=== PATIENT | female | born 2000 | race Caucasian/White ===

== ENCOUNTER 2019-03-13 19:38 | Emergency (ER) | payer MEDICAID ==
[~2019-03-13] VITALS: Ht 157.5 cm; Wt 47.0 kg
[~2019-03-13 19:38] MED LIST: NO HOME MEDS
[2019-03-13] MEDS ORDERED: ibuprofen tablet 400 MG TABLET PO ONE (20:15)
[2019-03-13] MEDS ORDERED: morphine 4 MG/ML inj SYRINge IV ONE ×2 (20:15→22:25)
[2019-03-13] MEDS ORDERED: normal saline 1000ML IV soln IVB ONE (20:15)
[2019-03-13] MEDS ORDERED: ondansetron/PF 4mg/2ml inj IV ONE ×2 (20:15→22:25)
[2019-03-13 20:22] LABS: BASOPHILS % (AUTO) 0.5 % (0-1); EOSINOPHILS # (AUTO) 0.2 X10'3 (0-0.9); EOSINOPHILS % (AUTO) 2.5 % (0-6); HEMATOCRIT 42.5 % (35.0-45.0); HEMOGLOBIN 14.6 g/dl (12.0-16.0); LYMPHOCYTES # (AUTO) 2.7 X10'3 (1.1-4.8); LYMPHOCYTES % (AUTO) 28.9 % (21-51); MEAN CORPUSCULAR HEMOGLOBIN 31.9 PG (27.0-31.0); MEAN CORPUSCULAR HGB CONC 34.5 g/dL (33.0-36.5); MEAN CORPUSCULAR VOLUME 92.6 FL (78-98); MEAN PLATELET VOLUME 7.4 FL (7.4-10.4); MONOCYTES # (AUTO) 0.8 X10'3 (0-0.9); MONOCYTES % (AUTO) 8.6 % (2-12); NEUTROPHILS # (AUTO) 5.5 X10'3 (1.8-7.7); NEUTROPHILS % (AUTO) 59.5 % (42-75); PLATELET COUNT 310 X10'3 (140-440); RED BLOOD COUNT 4.59 X10'6 (4.20-5.60); RED CELL DISTRIBUTION WIDTH 13.7 % (11.5-14.5); WHITE BLOOD COUNT 9.3 X10'3 (4.5-11.0)
[2019-03-13 20:27] LABS: CLARITY,URINE CLEAR (Clear); COLOR,URINE YELLOW (Yellow); GLUCOSE, URINE NEGATIVE (Neg); KETONES,URINE NEGATIVE (Neg); LEUKOCYTE ESTERASE ,URINE NEGATIVE (Neg); NITRITES, URINE NEGATIVE (Neg); OCCULT BLOOD,URINE LARGE (Neg); PROTEIN,URINE NEGATIVE (Neg); URINE HCG NEGATIVE (NEG); UROBILINOGEN,URINE 0.2 E.U/dL (0.2-1.0)
[2019-03-13 20:30] LABS: UA COLLECTION TYPE CLN CATCH MIDSTREAM
[2019-03-13 20:34] LABS: BACTERIA,URINE 1+ /HPF (Neg); MUCUS STRANDS NONE SEEN /LPF (Neg); RBC,URINE 0-2 /HPF (0-2); SQUAMOUS EPITHELIAL CELL,UR MANY /LPF (FEW); WBC,URINE 0-4 /HPF (0-4)
[2019-03-13 20:38] LABS: ALANINE AMINOTRANSFERASE 25 U/L (12-78); ALBUMIN 4.2 G/DL (3.4-5.0); ALBUMIN/GLOBULIN RATIO 1.2 (1.1-1.5); ALKALINE PHOSPHATASE 52 IU/L (20-180); ANION GAP 9 (8-16); ASPARTATE AMINO TRANSFERASE 11 U/L (10-37); BILIRUBIN,TOTAL 0.2 MG/DL (0.1-1.0); BLOOD UREA NITROGEN 11 MG/DL (7-18); BUN/CREATININE RATIO 13.6 (6.6-38.0); CALCIUM 9.2 MG/DL (8.5-10.1); CHLORIDE 105 MMOL/L (99-107); CREATININE 0.81 MG/DL (0.40-0.90); GLUCOSE 87 MG/DL (70-104); LIPASE 153 U/L (73-393); POTASSIUM 3.7 MMOL/L (3.5-5.1); SODIUM 140 MMOL/L (135-145); TOTAL CARBON DIOXIDE 25.6 MMOL/L (24-32); TOTAL PROTEIN 7.8 G/DL (6.4-8.2); eGFR > 90 ML/MIN
[2019-03-14 00:33] VITALS: BP 124/72
[2019-03-14] MEDS ORDERED: ondansetron/PF 4mg/2ml inj IV ONE (00:35)
[2019-03-14] MEDS ORDERED: fentaNYL/PF 50MCG/1 ML 2ML syringe IV ONE (00:35)
[2019-03-14] MEDS ORDERED: ketorolac trometh. 30mg/ml inj. IV ONE (01:00)
[2019-03-14] MEDS ORDERED: ONDA4TAB6 PO (01:09)
[2019-03-14] MEDS ORDERED: HYDR-4353 PO (01:09)
[2019-03-14] MEDS ORDERED: KETO10TA2 PO (01:09)
== END 2019-03-14 01:48 | disposition home or self-care (01) ==
LOC: ER 19:38
DX: N94.6 Dysmenorrhea, unspecified (principal); R10.31 Right lower quadrant pain; R10.32 Left lower quadrant pain
CPT/HCPCS: 36415; 74176; 76856; 80053; 81001; 81025; 83690; 85025; 87491; 87591; 96374; 96375; 96376; 99284; J2270; J2405; J3010; J7030

== ENCOUNTER 2019-07-09 15:48 | Emergency (ER) | payer MEDICAID ==
[~2019-07-09] VITALS: Ht 157.5 cm; Wt 50.0 kg
[~2019-07-09 15:48] MED LIST changes: +KETO10TA2 PO; +ONDA4TAB6 PO
[2019-07-09 16:14] VITALS: BP 134/81
[2019-07-09] MEDS ORDERED: CEPH-572 PO (17:52)
== END 2019-07-09 18:22 | disposition home or self-care (01) ==
LOC: ER 15:48
DX: S61.511A Laceration without foreign body of right wrist, initial encounter (principal); Z60.2 Problems related to living alone; Z79.899 Other long term (current) drug therapy; W51.XXXA Accidental striking against or bumped into by another person, initial encounter; Y93.89 Activity, other specified; Y92.89 Other specified places as the place of occurrence of the external cause; Y99.8 Other external cause status
CPT/HCPCS: 12002; 99284

== ENCOUNTER 2022-09-20 22:29 | Emergency (ER) | payer MEDICAID ==
[~2022-09-20] VITALS: Ht 157.5 cm; Wt 50.0 kg
[2022-09-20] MEDS ORDERED: normal saline 1000ML IV soln IVB ONE (22:55)
[2022-09-20 23:21] LABS: BASOPHILS # (AUTO) 0.1 X10'3 (0-0.2); BASOPHILS % (AUTO) 0.3 % (0-1); EOSINOPHILS # (AUTO) 0.2 X10'3 (0-0.9); EOSINOPHILS % (AUTO) 1.1 % (0-6); HEMATOCRIT 42.4 % (35.0-45.0); HEMOGLOBIN 14.6 g/dl (12.0-16.0); LYMPHOCYTES # (AUTO) 4.6 X10'3 (1.1-4.8); LYMPHOCYTES % (AUTO) 27.8 % (21-51); MEAN CORPUSCULAR HEMOGLOBIN 33.3 PG (27.0-31.0); MEAN CORPUSCULAR HGB CONC 34.5 g/dL (33.0-36.5); MEAN CORPUSCULAR VOLUME 96.4 FL (78-98); MONOCYTES # (AUTO) 1.4 X10'3 (0-0.9); MONOCYTES % (AUTO) 8.3 % (2-12); NEUTROPHILS # (AUTO) 10.4 X10'3 (1.8-7.7); NEUTROPHILS % (AUTO) 62.5 % (42-75); PLATELET COUNT 365 X10'3 (140-440); RED CELL DISTRIBUTION WIDTH 13.5 % (11.5-14.5); WHITE BLOOD COUNT 16.6 X10'3 (4.5-11.0)
[2022-09-20 23:28] LABS: ALANINE AMINOTRANSFERASE 43 U/L (12-78); ALBUMIN 4.7 G/DL (3.4-5.0); ALBUMIN/GLOBULIN RATIO 1.2 (1.1-1.5); ALKALINE PHOSPHATASE 70 IU/L (46-116); ANION GAP 16 (8-16); ASPARTATE AMINO TRANSFERASE 55 U/L (10-37); BILIRUBIN,TOTAL 0.2 MG/DL (0.1-1.0); BLOOD UREA NITROGEN 12 MG/DL (7-18); BUN/CREATININE RATIO 15.2 (6.6-38.0); CALCIUM 9.8 MG/DL (8.5-10.1); CHLORIDE 101 MMOL/L (99-107); CREATININE 0.79 MG/DL (0.40-0.90); GLUCOSE 93 MG/DL (70-104); LIPASE 278 U/L (73-393); POTASSIUM 3.5 MMOL/L (3.5-5.1); SODIUM 144 MMOL/L (135-145); TOTAL CARBON DIOXIDE 27.1 MMOL/L (24-32); TOTAL PROTEIN 8.6 G/DL (6.4-8.2); eGFR 90 ML/MIN
[2022-09-20 23:30] LABS: D-DIMER 0.41 MG/L FEU (0-0.50)
[2022-09-21] MEDS ORDERED: normal saline 1000ml 1,000 ML IV ONE
[2022-09-21 00:09] LABS: CLARITY,URINE CLEAR (Clear); COLOR,URINE STRAW (Yellow); GLUCOSE, URINE NEGATIVE (Neg); KETONES,URINE NEGATIVE (Neg); LEUKOCYTE ESTERASE ,URINE NEGATIVE (Neg); NITRITES, URINE NEGATIVE (Neg); OCCULT BLOOD,URINE NEGATIVE (Neg); PROTEIN,URINE NEGATIVE (Neg); UROBILINOGEN,URINE 0.2 E.U/dL (0.2-1.0)
[2022-09-21 00:14] LABS: UA COLLECTION TYPE CLN CATCH MIDSTREAM
[2022-09-21 00:17] LABS: URINE AMPHETAMINE SCREEN NEGATIVE (Neg); URINE BARBITUATE SCREEN NEGATIVE (Neg); URINE BENZODIAZEPINES SCREEN NEGATIVE (Neg); URINE CANNABINOID SCREEN POSITIVE (Neg); URINE COCAINE SCREEN NEGATIVE (Neg); URINE METHADONE SCREEN NEGATIVE (Neg); URINE OPIATE SCREEN NEGATIVE (Neg); URINE PHENCYCLIDINE SCREEN NEGATIVE (Neg)
--- NOTE | 2022-09-21 00:21 | NUR ---
Patient room air trialing at this time, oxygen removed by ED physician. Will monitor spo2, patient on data operations leader at this time, sinus, rate 89.
--- NOTE | 2022-09-21 00:48 | NUR ---
Patient ambulatory trial/pulse completed. Patient walked brisk 300ft in ER with spo2 sensor. Patient hR noted in 90s 100s, spo2 started at 99 percent, dropped to 96 percent during ambulation. Patient tolerated this well. Patient reports feeling improved from arrival.
[2022-09-21] MEDS ORDERED: thiamine 100mg/ml 2ml inj. IV ONE (00:50)
[2022-09-21] MEDS ORDERED: magnesium 4gm in 100ml NS 100 ML IV ONE (00:50)
--- NOTE | 2022-09-21 00:50 | NUR ---
Provider gave verbal advisory to marine underwriter to run magnesium over 1 hour.
[2022-09-21 02:01] VITALS: BP 130/77
== END 2022-09-21 02:31 | disposition home or self-care (01) ==
LOC: ER 22:29
DX: F10.920 Alcohol use, unspecified with intoxication, uncomplicated (principal); F12.10 Cannabis abuse, uncomplicated; F17.200 Nicotine dependence, unspecified, uncomplicated; Z79.899 Other long term (current) drug therapy; Y90.9 Presence of alcohol in blood, level not specified
CPT/HCPCS: 36415; 71045; 80053; 80305; 80320; 81003; 83690; 84702; 85025; 85379; 93005; 96361; 96365; 96375; 99285; J3411; J3475; J7030; 81025; A4615

== ENCOUNTER 2024-01-22 19:24 | Emergency (ER) | payer MEDICAID, OTHER ==
[~2024-01-22] VITALS: Ht 160 cm; Wt 52.3 kg
[2024-01-22] MEDS: LORazepam 1 MG tablet PO ONE (20:24)
[2024-01-22 20:37] LABS: URINE HCG NEGATIVE (NEG)
[2024-01-22 20:44] LABS: BILIRUBIN,URINE NEGATIVE (Neg); CLARITY,URINE CLEAR (Clear); COLOR,URINE STRAW (Yellow); GLUCOSE, URINE NEGATIVE (Neg); KETONES,URINE 15 mg/dl (Neg); LEUKOCYTE ESTERASE ,URINE NEGATIVE (Neg); NITRITES, URINE NEGATIVE (Neg); OCCULT BLOOD,URINE NEGATIVE (Neg); PROTEIN,URINE NEGATIVE (Neg); UROBILINOGEN,URINE 0.2 E.U/dL (0.2-1.0)
[2024-01-22 20:50] LABS: URINE AMPHETAMINE SCREEN NEGATIVE (Neg); URINE BARBITUATE SCREEN NEGATIVE (Neg); URINE BENZODIAZEPINES SCREEN NEGATIVE (Neg); URINE CANNABINOID SCREEN POSITIVE (Neg); URINE COCAINE SCREEN NEGATIVE (Neg); URINE METHADONE SCREEN NEGATIVE (Neg); URINE OPIATE SCREEN NEGATIVE (Neg); URINE PHENCYCLIDINE SCREEN NEGATIVE (Neg)
[2024-01-22 21:09] LABS: UA COLLECTION TYPE CLN CATCH MIDSTREAM
[2024-01-22] MEDS ORDERED: HYDR-3686 PO (21:34)
[2024-01-22 21:47] VITALS: TEMP 97.9
[2024-01-22 21:49] VITALS: BP 126/56; PULSE 97; RESP 17; O2SAT 95
== END 2024-01-22 21:51 | disposition home or self-care (01) ==
LOC: ER 19:25
DX: F41.9 Anxiety disorder, unspecified (principal); R00.0 Tachycardia, unspecified; E86.0 Dehydration; I10 Essential (primary) hypertension; F12.90 Cannabis use, unspecified, uncomplicated; R11.10 Vomiting, unspecified; L75.0 Bromhidrosis; Z72.89 Other problems related to lifestyle; Z60.2 Problems related to living alone; Z88.8 Allergy status to other drugs, medicaments and biological substances; Z79.899 Other long term (current) drug therapy
CPT/HCPCS: 71045; 80305; 81003; 81025; 82948; 93005; 99285

== ENCOUNTER 2024-04-20 08:05 | Emergency (ER) | payer MEDICAID, OTHER ==
[~2024-04-20] VITALS: Ht 157.5 cm; Wt 54.7 kg
[2024-04-20] MEDS ORDERED: HYDR50TA65 PO (08:23)
[2024-04-20] MEDS ORDERED: GABA-530 (08:23)
[2024-04-20] MEDS ORDERED: NALT50TA5 PO (08:23)
[2024-04-20] MEDS ORDERED: BUSP10TA4 PO (08:23)
[2024-04-20] MEDS ORDERED: ONDA-243 PO (08:28)
[2024-04-20] MEDS: normal saline 1000ML IV soln IVB ONE (08:52)
[2024-04-20] MEDS: LORazepam 2 mg/ml vial IV ONE (09:04)
[2024-04-20 09:06] LABS: BASOPHILS % (AUTO) 0.6 % (0-1); EOSINOPHILS # (AUTO) 0.1 X10'3 (0-0.9); EOSINOPHILS % (AUTO) 0.8 % (0-6); HEMATOCRIT 37.2 % (35.0-45.0); HEMOGLOBIN 12.4 g/dl (12.0-16.0); LYMPHOCYTES # (AUTO) 0.9 X10'3 (1.1-4.8); LYMPHOCYTES % (AUTO) 15.3 % (21-51); MEAN CORPUSCULAR HEMOGLOBIN 33.1 PG (27.0-31.0); MEAN CORPUSCULAR HGB CONC 33.3 g/dL (33.0-36.5); MEAN CORPUSCULAR VOLUME 99.6 FL (78-98); MEAN PLATELET VOLUME 7.2 FL (7.4-10.4); MONOCYTES # (AUTO) 0.4 X10'3 (0-0.9); MONOCYTES % (AUTO) 6.7 % (2-12); NEUTROPHILS # (AUTO) 4.7 X10'3 (1.8-7.7); NEUTROPHILS % (AUTO) 76.6 % (42-75); PLATELET COUNT 237 X10'3 (140-440); RED BLOOD COUNT 3.74 X10'6 (4.20-5.60); RED CELL DISTRIBUTION WIDTH 14.7 % (11.5-14.5); WHITE BLOOD COUNT 6.1 X10'3 (4.5-11.0)
[2024-04-20 09:09] LABS: ALBUMIN 3.2 G/DL (3.4-5.0); ANION GAP 16 (8-16); BLOOD UREA NITROGEN 4 MG/DL (7-18); CALCIUM 8.5 MG/DL (8.5-10.1); CHLORIDE 105 MMOL/L (99-107); GLUCOSE 94 MG/DL (70-104); POTASSIUM 3.3 MMOL/L (3.5-5.1); SODIUM 143 MMOL/L (135-145); TOTAL CARBON DIOXIDE 21.7 MMOL/L (24-32); eCRCL 86 ML/MIN; eGFR 88 ML/MIN
[2024-04-20] MEDS: magnesium sulf-water 2g/50mL 50 ML IV ONE (09:19)
[2024-04-20 09:26] VITALS: TEMP 98.7
[2024-04-20] MEDS ORDERED: CHLO25CA10 PO (09:38)
[2024-04-20] MEDS: potassium Cl 20 mEq SR tablet PO STA (10:30)
[2024-04-20 10:49] VITALS: BP 145/98; PULSE 82; RESP 16; O2SAT 96
== END 2024-04-20 10:50 | disposition home or self-care (01) ==
LOC: ER 08:06
DX: F10.239 Alcohol dependence with withdrawal, unspecified (principal); R56.9 Unspecified convulsions; I10 Essential (primary) hypertension; F12.90 Cannabis use, unspecified, uncomplicated; Z60.2 Problems related to living alone; Z88.8 Allergy status to other drugs, medicaments and biological substances; Z79.899 Other long term (current) drug therapy
CPT/HCPCS: 36415; 70450; 80048; 83605; 85025; 93005; 96365; 96375; 99285; J2060; J7030; 99284

== ENCOUNTER 2024-05-31 07:54 | Inpatient (IN) | payer MEDICAID ==
[~2024-05-31] VITALS: Ht 160 cm; Wt 55.5 kg
[~2024-05-31 07:54] MED LIST changes: +BUSP10TA4 PO; +CHLO25CA10 PO; +GABA-530; +HYDR50TA65 PO; -KETO10TA2 PO; +NALT50TA5 PO; +ONDA-243 PO; -ONDA4TAB6 PO
[2024-05-31] MEDS ORDERED: rocuronium 10mg/ml inj IV ONE (08:00)
[2024-05-31] MEDS: LORazepam 2 mg/ml vial ONE (08:12)
[2024-05-31] MEDS: LORazepam 2 mg/ml vial IV ONE ×3 (08:12→13:07)
[2024-05-31] MEDS: normal saline 1000ml 1,000 ML IV ONE ×3 (08:13→10:30)
[2024-05-31] MEDS: thiamine 100mg/ml 2ml inj. IM ONE (08:42)
[2024-05-31] MEDS: phenoBARBITAL sod 130mg/ml inj. IV ONE ×2 (08:42→09:43)
[2024-05-31 08:43] LABS: BASOPHILS % (AUTO) 0.3 % (0-1); EOSINOPHILS % (AUTO) 0.3 % (0-6); HEMATOCRIT 41.4 % (35.0-45.0); HEMOGLOBIN 13.4 g/dl (12.0-16.0); LYMPHOCYTES # (AUTO) 2.5 X10'3 (1.1-4.8); MEAN CORPUSCULAR HEMOGLOBIN 30.4 PG (27.0-31.0); MEAN CORPUSCULAR HGB CONC 32.3 g/dL (33.0-36.5); MEAN PLATELET VOLUME 8.5 FL (7.4-10.4); MONOCYTES % (AUTO) 7.5 % (2-12); NEUTROPHILS # (AUTO) 9.6 X10'3 (1.8-7.7); NEUTROPHILS % (AUTO) 72.9 % (42-75); PLATELET COUNT 159 X10'3 (140-440); RED BLOOD COUNT 4.41 X10'6 (4.20-5.60); RED CELL DISTRIBUTION WIDTH 14.1 % (11.5-14.5); WHITE BLOOD COUNT 13.2 X10'3 (4.5-11.0)
[2024-05-31 08:53] LABS: APTT 28 SECONDS (22-32); INR 1.1 INR; PROTHROMBIN TIME 11.1 SECONDS (9.0-12.0)
[2024-05-31 10:35] LABS: ALBUMIN 2.9 G/DL (3.4-5.0); ALBUMIN/GLOBULIN RATIO 0.6 (1.1-1.5); ALKALINE PHOSPHATASE 236 IU/L (46-116); ANION GAP 34 (8-16); ASPARTATE AMINO TRANSFERASE 643 U/L (10-37); BILIRUBIN,TOTAL 1.7 MG/DL (0.1-1.0); BLOOD UREA NITROGEN 4 MG/DL (7-18); BUN/CREATININE RATIO 3.3 (10.0-20.0); CALCIUM 9.7 MG/DL (8.5-10.1); CHLORIDE 79 MMOL/L (99-107); CREATININE 1.23 MG/DL (0.40-0.90); ETHANOL 24 MG/DL (<10); GLUCOSE 140 MG/DL (70-104); POTASSIUM 3.6 MMOL/L (3.5-5.1); SODIUM 127 MMOL/L (135-145); TOTAL PROTEIN 7.4 G/DL (6.4-8.2); eCRCL 58 ML/MIN; eGFR 54 ML/MIN
[2024-05-31 10:43] LABS: TOTAL CARBON DIOXIDE 14.5 MMOL/L (24-32)
[2024-05-31 10:53] LABS: ALANINE AMINOTRANSFERASE 208 U/L (12-78)
[2024-05-31] MEDS ORDERED: magnesium sulf-water 2g/50mL 50 ML IV PRN (12:35)
[2024-05-31] MEDS: folic acid 1mg/0.2ml inj IV SCH (12:35)
[2024-05-31] MEDS ORDERED: diphenhydrAMINE 25mg capsule PO PRN (12:35)
[2024-05-31] MEDS ORDERED: dextrose 50%-water 50ml dispensing syringe IV PRN (12:35)
[2024-05-31] MEDS ORDERED: potassium Cl 20 mEq SR tablet PO PRN (12:35)
[2024-05-31] MEDS ORDERED: acetaminophen 325mg tablet PO PRN (12:35)
[2024-05-31] MEDS ORDERED: mag hydrox/Alum hydrox/simeth 30ml oral suspension PO PRN (12:35)
[2024-05-31] MEDS ORDERED: morphine 2 MG/ML inj. syringe IV PRN (12:35)
[2024-05-31] MEDS ORDERED: magnesium sulf-water 4G/100mL 100 ML IV PRN (12:35)
[2024-05-31] MEDS ORDERED: magnesium Cl slow-release 64mg tablet PO PRN (12:35)
[2024-05-31] MEDS ORDERED: magnesium hydroxide 30ml (MOM) UD suspension PO PRN (12:35)
[2024-05-31] MEDS: normal saline 1000ml 1,000 ML IV SCH (13:07)
[2024-05-31] MEDS: thiamine 100mg/ml 2ml inj. IV SCH (13:07)
[2024-05-31 13:33] LABS: BILIRUBIN,URINE NEGATIVE (Neg); CLARITY,URINE CLEAR (Clear); COLOR,URINE YELLOW (Yellow); GLUCOSE, URINE NEGATIVE (Neg); KETONES,URINE TRACE mg/dl (Neg); LEUKOCYTE ESTERASE ,URINE NEGATIVE (Neg); NITRITES, URINE NEGATIVE (Neg); OCCULT BLOOD,URINE NEGATIVE (Neg); PROTEIN,URINE TRACE mg/dl (Neg)
[2024-05-31 13:34] LABS: UA COLLECTION TYPE VOIDED
[2024-05-31 13:36] LABS: URINE HCG NEGATIVE (NEG)
[2024-05-31 13:40] LABS: BACTERIA,URINE FEW /HPF (Neg); RBC,URINE NONE SEEN /HPF (0-2); SQUAMOUS EPITHELIAL CELL,UR MODERATE /LPF (FEW); WBC CLUMPS,URINE FEW /HPF (NEGATIVE)
[2024-05-31 13:40] LABS: OSMOLALITY 284 MOSM/K (280-300)
[2024-05-31 13:41] LABS: MUCUS STRANDS FEW /LPF (Neg)
[2024-05-31 13:45] LABS: POTASSIUM 2.7 MMOL/L (3.5-5.1)
[2024-05-31 13:51] LABS: OSMOLALITY UA 258 MOSM/K (50-1400)
[2024-05-31 13:52] LABS: SODIUM,URINE RANDOM 38 MEQ/L
[2024-05-31 13:53] LABS: URINE AMPHETAMINE SCREEN NEGATIVE (Neg); URINE BARBITUATE SCREEN POSITIVE (Neg); URINE BENZODIAZEPINES SCREEN NEGATIVE (Neg); URINE CANNABINOID SCREEN POSITIVE (Neg); URINE COCAINE SCREEN NEGATIVE (Neg); URINE METHADONE SCREEN NEGATIVE (Neg); URINE OPIATE SCREEN NEGATIVE (Neg); URINE PHENCYCLIDINE SCREEN NEGATIVE (Neg)
[2024-05-31] MEDS: LORazepam 2 mg/ml vial IV PRN ×2 (14:41→16:24)
[2024-05-31 15:48] LABS: CREATINE KINASE 95 U/L (26-192)
[2024-05-31] MEDS: potassium Cl 40MEQ/1/2NS 520ml 520 ML IV PRN (17:09)
[2024-05-31 18:40] VITALS: BP 139/96; PULSE 104; RESP 22; TEMP 100; O2SAT 98
[2024-05-31] MEDS: docusate sod 100mg capsule PO SCH (20:00)
[2024-05-31] MEDS: K and/or MAG REPLACEMENT MC SCH (20:29)
[2024-05-31 20:57] LABS: MAGNESIUM 1.4 MG/DL (1.5-2.4)
[2024-05-31 22:00] VITALS: BP 141/85; PULSE 108; RESP 26; TEMP 99.7; O2SAT 98
[2024-06-01 06:00] VITALS: BP 142/102; PULSE 106; RESP 16; TEMP 98.3; O2SAT 92
[2024-06-01 07:30] LABS: BASOPHILS % (AUTO) 0.5 % (0-1); EOSINOPHILS % (AUTO) 0.8 % (0-6); HEMATOCRIT 32.9 % (35.0-45.0); HEMOGLOBIN 11.2 g/dl (12.0-16.0); LYMPHOCYTES # (AUTO) 0.9 X10'3 (1.1-4.8); LYMPHOCYTES % (AUTO) 15.3 % (21-51); MEAN CORPUSCULAR HEMOGLOBIN 30.8 PG (27.0-31.0); MEAN CORPUSCULAR VOLUME 90.5 FL (78-98); MEAN PLATELET VOLUME 8.6 FL (7.4-10.4); MONOCYTES # (AUTO) 0.3 X10'3 (0-0.9); MONOCYTES % (AUTO) 4.5 % (2-12); NEUTROPHILS # (AUTO) 4.8 X10'3 (1.8-7.7); NEUTROPHILS % (AUTO) 78.9 % (42-75); PLATELET COUNT 126 X10'3 (140-440); RED BLOOD COUNT 3.64 X10'6 (4.20-5.60); RED CELL DISTRIBUTION WIDTH 13.8 % (11.5-14.5); WHITE BLOOD COUNT 6.1 X10'3 (4.5-11.0)
[2024-06-01 07:44] LABS: APTT 26 SECONDS (22-32); INR 1.1 INR; PROTHROMBIN TIME 11.4 SECONDS (9.0-12.0)
[2024-06-01 07:52] LABS: HIV ANTIBODY 1&2 RAPID NON-REACTIVE (Neg)
[2024-06-01 08:00] VITALS: RESP 16; O2SAT 92
[2024-06-01 08:09] LABS: ALANINE AMINOTRANSFERASE 218 U/L (12-78); ALBUMIN 2.3 G/DL (3.4-5.0); ALBUMIN/GLOBULIN RATIO 0.6 (1.1-1.5); ALKALINE PHOSPHATASE 175 IU/L (46-116); ANION GAP 9 (8-16); ASPARTATE AMINO TRANSFERASE 635 U/L (10-37); BILIRUBIN,TOTAL 1.7 MG/DL (0.1-1.0); BLOOD UREA NITROGEN 2 MG/DL (7-18); BUN/CREATININE RATIO 3.9 (10.0-20.0); CALCIUM 7.8 MG/DL (8.5-10.1); CHLORIDE 93 MMOL/L (99-107); CREATININE 0.51 MG/DL (0.40-0.90); GLUCOSE 78 MG/DL (70-104); MAGNESIUM 1.2 MG/DL (1.5-2.4); PHOSPHORUS 1.4 MG/DL (2.3-4.5); POTASSIUM 3.1 MMOL/L (3.5-5.1); SODIUM 127 MMOL/L (135-145); TOTAL CARBON DIOXIDE 25.5 MMOL/L (24-32); eCRCL 141 ML/MIN; eGFR > 90 ML/MIN
[2024-06-01] MEDS ORDERED: sodium phosphate inj. 15 MMOL in dextrose 5%-water 250 ML IV PRN (08:20)
[2024-06-01] MEDS ORDERED: dextrose 50%-water 50ml dispensing syringe IV PRN (08:30)
[2024-06-01 11:00] VITALS: BP 137/101; PULSE 130; RESP 11; TEMP 98.4; O2SAT 98
[2024-06-01] MEDS: nicotine 14mg patch - 24hr TD SCH (11:55)
[2024-06-01] MEDS: potassium Cl 20 mEq SR tablet PO SCH (12:34)
[2024-06-01] MEDS: dextrose 5%-lactated ringers 1,000 ML IV SCH (12:35)
[2024-06-01] MEDS: propranolol 10mg tablet PO SCH (13:48)
[2024-06-01] MEDS: haloperidol lactate 5mg/ml inj IM PRN ×2 (13:48→23:38)
[2024-06-01] MEDS: UREA 15GM/PACKET 15 GM POWD.PACK PO SCH (15:12)
[2024-06-01] MEDS: magnesium oxide 400mg tablet PO SCH (16:03)
[2024-06-01] MEDS: Neutra Phos packet PO PRN (16:04)
[2024-06-01] MEDS ORDERED: Potassium Cl inj 20 MEQ in normal saline 1000ml 990 ML IV SCH (19:35)
[2024-06-01] MEDS ORDERED: iohexol 300mg/ml 100ml inj. ONE (19:44)
[2024-06-01] MEDS: Melatonin 3mg tablet PO SCH (21:00)
[2024-06-01] MEDS: potassium Cl 20mEq in NS 1,000 ML IV SCH (21:40)
[2024-06-01] MEDS ORDERED: metoprolol tartrate 1mg/ml inj IV ONE (22:20)
[2024-06-01] MEDS: metoprolol tartrate 1mg/ml inj IV ONE (23:15)
[2024-06-02] VITALS (37 sets, daily range): BP systolic 89–167; BP diastolic 45–123; PULSE 92–143; RESP 14–24; O2SAT 84–100
[2024-06-02] MEDS: metoprolol tartrate 1mg/ml inj IV ONE (00:10)
[2024-06-02] MEDS ORDERED: fentaNYL/PF 50MCG/1 ML 2ML syringe IV PRN (00:35)
[2024-06-02] MEDS ORDERED: FENTANYL-0.9 % NACL/PF 100 ML IV SCH (00:35)
[2024-06-02] MEDS ORDERED: midazolam 100mg in NS 100ml 100 ML IV SCH (00:35)
[2024-06-02 01:16] LABS: BASOPHILS % (AUTO) 0.4 % (0-1); EOSINOPHILS % (AUTO) 0.5 % (0-6); HEMATOCRIT 36.1 % (35.0-45.0); LYMPHOCYTES # (AUTO) 1.5 X10'3 (1.1-4.8); LYMPHOCYTES % (AUTO) 15.8 % (21-51); MEAN CORPUSCULAR HEMOGLOBIN 30.3 PG (27.0-31.0); MEAN CORPUSCULAR HGB CONC 33.4 g/dL (33.0-36.5); MEAN CORPUSCULAR VOLUME 90.7 FL (78-98); MEAN PLATELET VOLUME 9.1 FL (7.4-10.4); MONOCYTES # (AUTO) 0.7 X10'3 (0-0.9); NEUTROPHILS % (AUTO) 75.3 % (42-75); PLATELET COUNT 158 X10'3 (140-440); RED BLOOD COUNT 3.98 X10'6 (4.20-5.60); RED CELL DISTRIBUTION WIDTH 14.2 % (11.5-14.5); WHITE BLOOD COUNT 9.3 X10'3 (4.5-11.0)
[2024-06-02 01:26] LABS: APTT 28 SECONDS (22-32); INR 1.2 INR; PROTHROMBIN TIME 12.2 SECONDS (9.0-12.0)
[2024-06-02 01:27] LABS: ABG BASE EXCESS -5.3 mmol/L (-2.0-3.0); ABG HCO3 21.7 mmol/L (21.0-28.0); ABG OXYGEN SATURATION 95.5 % (94.0-98.0); ABG PCO2 (T) 45.7 mmHg (32.0-45.0); ABG PH (T) 7.288 (7.350-7.450); ABG PO2 (T) 82.4 mmHg (83.0-108.0); ALLEN'S TEST Modified; FCOHb 0.3 % (0.5-1.5); FHHb 4.5 % (0.0-5.0); FMetHb 0.3 % (0.0-1.5); FO2Hb 94.9 % (94.0-98.0); MODE VENT - PRVC; PATIENT TEMPERATURE 35.7; PEEP 8 cm H2O; RESPIRATORY RATE 16 b/min; TIDAL VOLUME 350 mL; TOTAL HEMOGLOBIN 12.9 G/dl (12.0-16.0)
[2024-06-02] MEDS: FENTANYL-0.9 % NACL/PF 100 ML IV SCH (01:28)
[2024-06-02] MEDS: midazolam 100mg in NS 100ml 100 ML IV SCH (01:28)
[2024-06-02] MEDS: magnesium sulf-water 2g/50mL 50 ML IV ONE (01:29)
[2024-06-02] MEDS: midazolam 1 mg/ML 2ml injection IV ONE (01:29)
[2024-06-02] MEDS ORDERED: PERFLUTREN PROTEIN-A MICROSPHR (Optison) 0.22 MG/ML 3ML VIAL IV ONE (01:30)
[2024-06-02] MEDS: magnesium sulf-water 2g/50mL 50 ML IV STA (01:31)
[2024-06-02 01:42] LABS: ALANINE AMINOTRANSFERASE 348 U/L (12-78); ALBUMIN 2.2 G/DL (3.4-5.0); ALBUMIN/GLOBULIN RATIO 0.6 (1.1-1.5); ALKALINE PHOSPHATASE 171 IU/L (46-116); ANION GAP 9 (8-16); BILIRUBIN,TOTAL 1.5 MG/DL (0.1-1.0); BLOOD UREA NITROGEN 2 MG/DL (7-18); BUN/CREATININE RATIO 3.3 (10.0-20.0); CALCIUM 8.1 MG/DL (8.5-10.1); CHLORIDE 99 MMOL/L (99-107); CREATININE 0.61 MG/DL (0.40-0.90); GLUCOSE 163 MG/DL (70-104); MAGNESIUM 1.3 MG/DL (1.5-2.4); PHOSPHORUS 2.2 MG/DL (2.3-4.5); POTASSIUM 3.9 MMOL/L (3.5-5.1); SODIUM 129 MMOL/L (135-145); TOTAL CARBON DIOXIDE 21.2 MMOL/L (24-32); TOTAL PROTEIN 5.8 G/DL (6.4-8.2); eCRCL 118 ML/MIN; eGFR > 90 ML/MIN
[2024-06-02] MEDS ORDERED: magnesium hydroxide 30ml (MOM) UD suspension PO PRN (01:45)
[2024-06-02] MEDS ORDERED: morphine 4 MG/ML inj SYRINge IV PRN (01:45)
[2024-06-02] MEDS ORDERED: acetaminophen 325mg tablet PO PRN ×2 (01:45)
[2024-06-02] MEDS ORDERED: morphine 2 MG/ML inj. syringe IV PRN (01:45)
[2024-06-02 01:47] LABS: ASPARTATE AMINO TRANSFERASE 1365 U/L (10-37)
[2024-06-02] MEDS ORDERED: potassium CL 10mEq/100ml bag 100 ML IV SCH (02:45)
[2024-06-02] MEDS: COMMUNICATION ORDER 1 EA MISC MC ONE ×2 (03:12→23:29)
[2024-06-02 03:19] LABS: ABG BASE EXCESS -4.7 mmol/L (-2.0-3.0); ABG HCO3 17.5 mmol/L (21.0-28.0); ABG OXYGEN SATURATION 99.3 % (94.0-98.0); ABG PCO2 (T) 23.4 mmHg (32.0-45.0); ABG PO2 (T) 182.6 mmHg (83.0-108.0); ALLEN'S TEST Modified; FCOHb 0.3 % (0.5-1.5); FHHb 0.7 % (0.0-5.0); FMetHb 0.3 % (0.0-1.5); FO2Hb 98.7 % (94.0-98.0); MODE VENT - PRVC; PATIENT TEMPERATURE 36.5; PEEP 8 cm H2O; RESPIRATORY RATE 18 b/min; TIDAL VOLUME 350 mL; TOTAL HEMOGLOBIN 10.2 G/dl (12.0-16.0)
[2024-06-02] MEDS: normal saline 1000ml 1,000 ML IV SCH (03:22)
[2024-06-02] MEDS ORDERED: pantoprazole 40mg Tablet.DR PO SCH (07:30)
[2024-06-02] MEDS: CEFEPIME 2gm in D5W 50mL 50 ML IV SCH (07:59)
[2024-06-02] MEDS: vancomycin/NS 1 GM ADD-VANTAGE 250 ML IV SCH (07:59)
[2024-06-02] MEDS ORDERED: multivitamins, therapeutics tablet PO SCH (08:00)
[2024-06-02] MEDS ORDERED: VANCOMYCIN/H2O 750mg/150mL PB 150 ML IV SCH (08:00)
[2024-06-02] MEDS ORDERED: CefTRIAXone 2gm/D5W 50ml BAG 50 ML IV SCH (08:00)
[2024-06-02] MEDS: pantoprazole 40 MG vial IV SCH (08:20)
[2024-06-02] MEDS: PERFLUTREN PROTEIN-A MICROSPHR (Optison) 0.22 MG/ML 3ML VIAL IV ONE (08:31)
[2024-06-02 09:11] LABS: HBSAG SCREEN Negative (Negative)
[2024-06-02] MEDS ORDERED: folic acid 1mg tablet PO ONE (10:20)
[2024-06-02] MEDS ORDERED: thiamine 100mg tablet PO ONE (10:20)
[2024-06-02] MEDS ORDERED: acetaminophen 325mg tablet OGT PRN ×2 (11:06)
[2024-06-02 12:12] LABS: HCG SERUM QL NEGATIVE
[2024-06-02] MEDS: propranolol 10mg tablet OGT SCH (13:00)
[2024-06-02] MEDS: VANCOMYCIN 1GM 200ML H20 (PEG) 200 ML IV SCH (16:40)
[2024-06-02] MEDS: magnesium oxide 400mg tablet OGT SCH (17:15)
[2024-06-02] MEDS: POTASSIUM CHLORIDE 20 MEQ/15 ML oral solution OGT SCH (17:15)
[2024-06-02] MEDS: docusate sodium 100mg/10ml UD cup PO SCH (19:22)
[2024-06-02] MEDS: Melatonin 3mg tablet OGT SCH (20:59)
[2024-06-02] MEDS: propofol 1000mg/100ml bottle 100 ML IV SCH (22:41)
[2024-06-03] VITALS (39 sets, daily range): BP systolic 98–143; BP diastolic 48–113; PULSE 59–117; RESP 12–36; O2SAT 82–100
[2024-06-03] MEDS: acetaminophen 325mg tablet OGT PRN (01:17)
[2024-06-03] MEDS: mineral oil/petrolatum ophthal oint EACHEYE SCH (02:00)
[2024-06-03 02:53] LABS: ABG BASE EXCESS -3.5 mmol/L (-2.0-3.0); ABG HCO3 20.2 mmol/L (21.0-28.0); ABG OXYGEN SATURATION 97.3 % (94.0-98.0); ABG PCO2 (T) 32.9 mmHg (32.0-45.0); ABG PH (T) 7.409 (7.350-7.450); ABG PO2 (T) 95.2 mmHg (83.0-108.0); ALLEN'S TEST Modified; FCOHb 0.2 % (0.5-1.5); FHHb 2.7 % (0.0-5.0); FMetHb 0.3 % (0.0-1.5); FO2Hb 96.8 % (94.0-98.0); MODE VENT - PRVC; PEEP 5 cm H2O; RESPIRATORY RATE 18 b/min; TIDAL VOLUME 350 mL; TOTAL HEMOGLOBIN 10.2 G/dl (12.0-16.0)
[2024-06-03] MEDS: VANCOMYCIN LEVEL IV ONE (07:39)
[2024-06-03] MEDS: UREA 15GM/PACKET 15 GM POWD.PACK OGT SCH (07:40)
[2024-06-03] MEDS: MULTIVIT-MIN/FERROUS GLUCONATE 9 MG/15 ML LIQUID OGT SCH (07:41)
[2024-06-03 07:55] LABS: APTT 22 SECONDS (22-32); PROTHROMBIN TIME 10.9 SECONDS (9.0-12.0)
[2024-06-03 08:05] LABS: BASOPHILS % (AUTO) 0.6 % (0-1); EOSINOPHILS # (AUTO) 0.1 X10'3 (0-0.9); HEMATOCRIT 32.3 % (35.0-45.0); HEMOGLOBIN 10.4 g/dl (12.0-16.0); LYMPHOCYTES # (AUTO) 1.8 X10'3 (1.1-4.8); LYMPHOCYTES % (AUTO) 24.4 % (21-51); MEAN CORPUSCULAR HEMOGLOBIN 30.2 PG (27.0-31.0); MEAN CORPUSCULAR HGB CONC 32.3 g/dL (33.0-36.5); MEAN CORPUSCULAR VOLUME 93.6 FL (78-98); MEAN PLATELET VOLUME 8.6 FL (7.4-10.4); MONOCYTES # (AUTO) 1.1 X10'3 (0-0.9); MONOCYTES % (AUTO) 14.2 % (2-12); NEUTROPHILS # (AUTO) 4.5 X10'3 (1.8-7.7); NEUTROPHILS % (AUTO) 59.8 % (42-75); PLATELET COUNT 155 X10'3 (140-440); RED BLOOD COUNT 3.45 X10'6 (4.20-5.60); RED CELL DISTRIBUTION WIDTH 14.6 % (11.5-14.5); WHITE BLOOD COUNT 7.5 X10'3 (4.5-11.0)
[2024-06-03 08:29] LABS: ALANINE AMINOTRANSFERASE 185 U/L (12-78); ALBUMIN 1.7 G/DL (3.4-5.0); ALBUMIN/GLOBULIN RATIO 0.5 (1.1-1.5); ALKALINE PHOSPHATASE 118 IU/L (46-116); ANION GAP 7 (8-16); ASPARTATE AMINO TRANSFERASE 343 U/L (10-37); BILIRUBIN,TOTAL 1.1 MG/DL (0.1-1.0); BLOOD UREA NITROGEN 5 MG/DL (7-18); BUN/CREATININE RATIO 8.5 (10.0-20.0); CALCIUM 7.4 MG/DL (8.5-10.1); CHLORIDE 106 MMOL/L (99-107); CREATININE 0.59 MG/DL (0.40-0.90); GLUCOSE 74 MG/DL (70-104); MAGNESIUM 1.7 MG/DL (1.5-2.4); PHOSPHORUS 1.6 MG/DL (2.3-4.5); POTASSIUM 3.3 MMOL/L (3.5-5.1); SODIUM 131 MMOL/L (135-145); TOTAL CARBON DIOXIDE 18.1 MMOL/L (24-32); TOTAL PROTEIN 5.2 G/DL (6.4-8.2); eCRCL 122 ML/MIN; eGFR > 90 ML/MIN
[2024-06-03] MEDS ORDERED: levetiracetam inj 500 MG in normal saline 100ml IV soln 100 ML IV SCH (09:35)
[2024-06-03] MEDS ORDERED: Levetiracetam-NACL 500mg/100ml 100 ML IV SCH (09:48)
[2024-06-03 10:15] LABS: AMYLASE 280 U/L (25-115)
[2024-06-03] MEDS: Levetiracetam-NACL 500mg/100ml 100 ML IV SCH (10:35)
[2024-06-03] MEDS: potassium Cl 20 mEq SR tablet PO PRN (10:38)
[2024-06-03] MEDS: dexmedetomidin/NS 400mcg/100ml 100 ML IV PRN (10:39)
[2024-06-03 10:58] LABS: LIPASE > 375 U/L (16-77)
[2024-06-03] MEDS: furosemide 40mg/4ml inj IV ONE (12:09)
[2024-06-03 13:29] LABS: ABG HCO3 17.3 mmol/L (21.0-28.0); ABG OXYGEN SATURATION 84.6 % (94.0-98.0); ABG PCO2 (T) 31.6 mmHg (32.0-45.0); ABG PH (T) 7.357 (7.350-7.450); ABG PO2 (T) 50.3 mmHg (83.0-108.0); ALLEN'S TEST POSITIVE; FCOHb 0.4 % (0.5-1.5); FHHb 15.3 % (0.0-5.0); FMetHb 0.3 % (0.0-1.5); MODE VENT - AC; PATIENT TEMPERATURE 37.4; PEEP 5 cm H2O; RESPIRATORY RATE 18 b/min; TIDAL VOLUME 350 mL; TOTAL HEMOGLOBIN 11.7 G/dl (12.0-16.0)
[2024-06-03] MEDS: acetaminophen 325mg/10.15ml oral unit dose solution OGT ONE (22:25)
[2024-06-04] VITALS (35 sets, daily range): BP systolic 85–130; BP diastolic 50–96; PULSE 77–105; RESP 15–45; O2SAT 90–100
[2024-06-04 03:07] LABS: ABG HCO3 19.1 mmol/L (21.0-28.0); ABG OXYGEN SATURATION 95.7 % (94.0-98.0); ABG PCO2 (T) 28.6 mmHg (32.0-45.0); ABG PH (T) 7.443 (7.350-7.450); ABG PO2 (T) 76.8 mmHg (83.0-108.0); ALLEN'S TEST Modified; FCOHb 0.3 % (0.5-1.5); FHHb 4.3 % (0.0-5.0); FMetHb 0.3 % (0.0-1.5); FO2Hb 95.1 % (94.0-98.0); MODE VENT - PRVC; PATIENT TEMPERATURE 36.9; PEEP 5 cm H2O; RESPIRATORY RATE 18 b/min; TIDAL VOLUME 350 mL; TOTAL HEMOGLOBIN 10.4 G/dl (12.0-16.0)
[2024-06-04 04:55] LABS: BASOPHILS % (AUTO) 0.4 % (0-1); EOSINOPHILS # (AUTO) 0.1 X10'3 (0-0.9); EOSINOPHILS % (AUTO) 0.9 % (0-6); HEMATOCRIT 28.8 % (35.0-45.0); HEMOGLOBIN 9.7 g/dl (12.0-16.0); LYMPHOCYTES # (AUTO) 1.1 X10'3 (1.1-4.8); LYMPHOCYTES % (AUTO) 15.7 % (21-51); MEAN CORPUSCULAR HEMOGLOBIN 30.7 PG (27.0-31.0); MEAN CORPUSCULAR HGB CONC 33.7 g/dL (33.0-36.5); MEAN CORPUSCULAR VOLUME 90.9 FL (78-98); MEAN PLATELET VOLUME 9.1 FL (7.4-10.4); MONOCYTES # (AUTO) 0.9 X10'3 (0-0.9); MONOCYTES % (AUTO) 12.2 % (2-12); NEUTROPHILS # (AUTO) 5.1 X10'3 (1.8-7.7); NEUTROPHILS % (AUTO) 70.8 % (42-75); PLATELET COUNT 181 X10'3 (140-440); RED BLOOD COUNT 3.16 X10'6 (4.20-5.60); RED CELL DISTRIBUTION WIDTH 14.8 % (11.5-14.5); WHITE BLOOD COUNT 7.2 X10'3 (4.5-11.0)
[2024-06-04 04:59] LABS: INR 1.1 INR; PROTHROMBIN TIME 11.3 SECONDS (9.0-12.0)
[2024-06-04 05:03] LABS: ALANINE AMINOTRANSFERASE 164 U/L (12-78); ALBUMIN 1.5 G/DL (3.4-5.0); ALBUMIN/GLOBULIN RATIO 0.4 (1.1-1.5); ALKALINE PHOSPHATASE 109 IU/L (46-116); ANION GAP 8 (8-16); ASPARTATE AMINO TRANSFERASE 212 U/L (10-37); BLOOD UREA NITROGEN 5 MG/DL (7-18); BUN/CREATININE RATIO 12.5 (10.0-20.0); CALCIUM 7.2 MG/DL (8.5-10.1); CHLORIDE 102 MMOL/L (99-107); GLUCOSE 134 MG/DL (70-104); MAGNESIUM 1.2 MG/DL (1.5-2.4); PHOSPHORUS 1.3 MG/DL (2.3-4.5); POTASSIUM 3.1 MMOL/L (3.5-5.1); PREALBUMIN 9.7 MG/DL (19-36); SODIUM 133 MMOL/L (135-145); TOTAL CARBON DIOXIDE 23.1 MMOL/L (24-32); TOTAL PROTEIN 5.1 G/DL (6.4-8.2); eCRCL 179 ML/MIN; eGFR > 90 ML/MIN
[2024-06-04] MEDS: magnesium sulf-water 4G/100mL 100 ML IV ONE (05:48)
[2024-06-04] MEDS: potassium Cl 40MEQ/1/2NS 520ml 520 ML IV SCH ×2 (05:57→13:32)
[2024-06-04 06:11] LABS: LIPASE > 375 U/L (16-77)
[2024-06-04 08:52] LABS: CHOL/HDL RATIO 5.6 (0.00-4.99); CHOLESTEROL 78 MG/DL (0-200); HDL CHOLESTEROL 14 MG/DL (35-60); LDL CHOLESTEROL 45 MG/DL (50-100); TRIGLYCERIDES 170 MG/DL (20-135)
[2024-06-04] MEDS ORDERED: potassium Cl 40MEQ/1/2NS 520ml 520 ML IV PRN (10:25)
[2024-06-04] MEDS ORDERED: potassium CL 10mEq/100ml bag 100 ML IV PRN (10:25)
[2024-06-04] MEDS ORDERED: potassium Cl 20 mEq SR tablet PO PRN (10:25)
[2024-06-04] MEDS: ketorolac trometh 15mg/ml vial 15 MG/ML ML IV PRN (13:27)
[2024-06-04] MEDS: CefTRIAXone/D5W-Rocephin 1gm 50 ML IV SCH (13:32)
[2024-06-04] MEDS: AZITHROMYCIN 500 MG in NS 250ml IV.SOLN IV SCH (13:54)
[2024-06-04] MEDS: NORepinephrine 8mg/ 250ml NS 250 ML IV SCH (15:15)
[2024-06-04] MEDS: albumin (human) 25% 100 ML IV solution IV ONE (16:00)
[2024-06-04 16:01] LABS: BASOPHILS % (AUTO) 0.2 % (0-1); EOSINOPHILS # (AUTO) 0.1 X10'3 (0-0.9); EOSINOPHILS % (AUTO) 0.8 % (0-6); HEMATOCRIT 25.3 % (35.0-45.0); HEMOGLOBIN 8.5 g/dl (12.0-16.0); LYMPHOCYTES # (AUTO) 0.8 X10'3 (1.1-4.8); LYMPHOCYTES % (AUTO) 12.8 % (21-51); MEAN CORPUSCULAR HEMOGLOBIN 30.7 PG (27.0-31.0); MEAN CORPUSCULAR HGB CONC 33.5 g/dL (33.0-36.5); MEAN CORPUSCULAR VOLUME 91.9 FL (78-98); MEAN PLATELET VOLUME 8.7 FL (7.4-10.4); MONOCYTES # (AUTO) 0.8 X10'3 (0-0.9); MONOCYTES % (AUTO) 11.5 % (2-12); NEUTROPHILS # (AUTO) 4.9 X10'3 (1.8-7.7); NEUTROPHILS % (AUTO) 74.7 % (42-75); PLATELET COUNT 208 X10'3 (140-440); RED BLOOD COUNT 2.76 X10'6 (4.20-5.60); WHITE BLOOD COUNT 6.6 X10'3 (4.5-11.0)
[2024-06-04 16:13] LABS: ALANINE AMINOTRANSFERASE 136 U/L (12-78); ALBUMIN 1.3 G/DL (3.4-5.0); ALBUMIN/GLOBULIN RATIO 0.4 (1.1-1.5); ALKALINE PHOSPHATASE 97 IU/L (46-116); ANION GAP 6 (8-16); ASPARTATE AMINO TRANSFERASE 165 U/L (10-37); BILIRUBIN,TOTAL 0.5 MG/DL (0.1-1.0); BLOOD UREA NITROGEN 17 MG/DL (7-18); BUN/CREATININE RATIO 41.5 (10.0-20.0); CALCIUM 7.3 MG/DL (8.5-10.1); CHLORIDE 105 MMOL/L (99-107); CREATININE 0.41 MG/DL (0.40-0.90); GLUCOSE 149 MG/DL (70-104); POTASSIUM 4.5 MMOL/L (3.5-5.1); SODIUM 132 MMOL/L (135-145); TOTAL CARBON DIOXIDE 20.9 MMOL/L (24-32); TOTAL PROTEIN 4.7 G/DL (6.4-8.2); eCRCL 175 ML/MIN; eGFR > 90 ML/MIN
[2024-06-04] MEDS: albumin (Human) 5% 250ml 250 ML IV SCH (17:18)
[2024-06-04 17:54] LABS: NUCLEATED RED BLOOD CELLS 1 /100WBC (0-0); TOTAL CELLS COUNTED 100
[2024-06-04 17:55] LABS: ANISOCYTOSIS 1+; HYPOCHROMASIA 1+; PLATELET ESTIMATE NORMAL
[2024-06-04 17:56] LABS: GIANT PLATELET FEW; POLYCHROMASIA FEW
[2024-06-04 19:30] LABS: ALANINE AMINOTRANSFERASE 110 U/L (12-78); ALBUMIN 3.6 G/DL (3.4-5.0); ALBUMIN/GLOBULIN RATIO 1.4 (1.1-1.5); ALKALINE PHOSPHATASE 66 IU/L (46-116); ANION GAP 4 (8-16); ASPARTATE AMINO TRANSFERASE 181 U/L (10-37); BLOOD UREA NITROGEN 13 MG/DL (7-18); BUN/CREATININE RATIO 39.4 (10.0-20.0); CALCIUM 7.4 MG/DL (8.5-10.1); CHLORIDE 104 MMOL/L (99-107); CREATININE 0.33 MG/DL (0.40-0.90); GLUCOSE 93 MG/DL (70-104); MAGNESIUM 2.1 MG/DL (1.5-2.4); POTASSIUM 4.6 MMOL/L (3.5-5.1); SODIUM 133 MMOL/L (135-145); TOTAL PROTEIN 6.1 G/DL (6.4-8.2); eCRCL 217 ML/MIN; eGFR > 90 ML/MIN
[2024-06-04 19:33] LABS: PHOSPHORUS 1.1 MG/DL (2.3-4.5)
[2024-06-04] MEDS: magnesium sulf-water 2g/50mL 50 ML IV PRN (19:53)
[2024-06-04] MEDS: sodium phosphate inj. 30 MMOL in dextrose 5%-water 250 ML IV PRN (19:59)
[2024-06-05] VITALS (39 sets, daily range): BP systolic 89–137; BP diastolic 43–94; PULSE 91–124; RESP 17–35; O2SAT 88–99
[2024-06-05 03:48] LABS: ABG HCO3 20.4 mmol/L (21.0-28.0); ABG OXYGEN SATURATION 97.3 % (94.0-98.0); ABG PCO2 (T) 34.2 mmHg (32.0-45.0); ABG PH (T) 7.394 (7.350-7.450); ABG PO2 (T) 93.3 mmHg (83.0-108.0); ALLEN'S TEST Modified; FCOHb 0.3 % (0.5-1.5); FHHb 2.7 % (0.0-5.0); FMetHb 0.3 % (0.0-1.5); FO2Hb 96.7 % (94.0-98.0); MODE VENT - prvc; PEEP 5 cm H2O; RESPIRATORY RATE 15 b/min; TIDAL VOLUME 350 mL; TOTAL HEMOGLOBIN 8.1 G/dl (12.0-16.0)
[2024-06-05 05:26] LABS: BASOPHILS % (AUTO) 0.4 % (0-1); EOSINOPHILS # (AUTO) 0.1 X10'3 (0-0.9); EOSINOPHILS % (AUTO) 1.1 % (0-6); HEMATOCRIT 22.1 % (35.0-45.0); HEMOGLOBIN 7.3 g/dl (12.0-16.0); LYMPHOCYTES # (AUTO) 0.9 X10'3 (1.1-4.8); LYMPHOCYTES % (AUTO) 14.8 % (21-51); MEAN CORPUSCULAR HEMOGLOBIN 30.6 PG (27.0-31.0); MEAN CORPUSCULAR HGB CONC 33.2 g/dL (33.0-36.5); MEAN CORPUSCULAR VOLUME 92.1 FL (78-98); MEAN PLATELET VOLUME 8.8 FL (7.4-10.4); MONOCYTES # (AUTO) 0.7 X10'3 (0-0.9); MONOCYTES % (AUTO) 11.6 % (2-12); NEUTROPHILS # (AUTO) 4.3 X10'3 (1.8-7.7); NEUTROPHILS % (AUTO) 72.1 % (42-75); PLATELET COUNT 245 X10'3 (140-440); RED CELL DISTRIBUTION WIDTH 14.8 % (11.5-14.5)
[2024-06-05 05:39] LABS: PROTHROMBIN TIME 10.5 SECONDS (9.0-12.0)
[2024-06-05 05:44] LABS: ALANINE AMINOTRANSFERASE 102 U/L (12-78); ALBUMIN 3.4 G/DL (3.4-5.0); ALBUMIN/GLOBULIN RATIO 1.5 (1.1-1.5); ALKALINE PHOSPHATASE 69 IU/L (46-116); ANION GAP 6 (8-16); ASPARTATE AMINO TRANSFERASE 148 U/L (10-37); BLOOD UREA NITROGEN 7 MG/DL (7-18); CALCIUM 7.6 MG/DL (8.5-10.1); CHLORIDE 106 MMOL/L (99-107); CREATININE 0.25 MG/DL (0.40-0.90); GLUCOSE 78 MG/DL (70-104); MAGNESIUM 2.4 MG/DL (1.5-2.4); PHOSPHORUS 3.1 MG/DL (2.3-4.5); POTASSIUM 3.9 MMOL/L (3.5-5.1); SODIUM 136 MMOL/L (135-145); TOTAL CARBON DIOXIDE 23.6 MMOL/L (24-32); TOTAL PROTEIN 5.6 G/DL (6.4-8.2); eCRCL 287 ML/MIN; eGFR > 90 ML/MIN
[2024-06-05 06:12] LABS: HEPATITIS C VIRUS ANTIBODY Non Reactive (Non Reactive)
[2024-06-05] MEDS: potassium Cl 20mEq/100mL bag 100 ML IV PRN (07:30)
[2024-06-05] MEDS: thiamine 100mg tablet OGT SCH (07:31)
[2024-06-05] MEDS: folic acid 1mg tablet OGT SCH (07:31)
[2024-06-05] MEDS ORDERED: dextrose 50%-water 50ml dispensing syringe IV PRN (07:55)
[2024-06-05] MEDS: dextrose 50%-water 50ml dispensing syringe IV PRN (08:03)
[2024-06-05 08:50] LABS: PLATELET ESTIMATE NORMAL; TOTAL CELLS COUNTED 100
[2024-06-05 08:51] LABS: HYPOCHROMASIA 1+; POIKILOCYTOSIS 2+; STOMATOCYTES 1+
[2024-06-05 08:52] LABS: ANISOCYTOSIS 2+; LARGE PLATELETS FEW
[2024-06-05 09:36] LABS: LIPASE 354 U/L (16-77)
[2024-06-05] MEDS: ipratropium/albuterol 3ml nebule NEB SCH (14:33)
[2024-06-05] MEDS ORDERED: lactulose 20gm/30ml cup OGT SCH (16:00)
[2024-06-06] VITALS (42 sets, daily range): BP systolic 91–181; BP diastolic 52–118; PULSE 105–149; RESP 17–38; O2SAT 88–100
[2024-06-06] MEDS: dextrose 5%-normal saline 1,000 ML IV SCH (01:05)
[2024-06-06 03:23] LABS: BASOPHILS % (AUTO) 0.3 % (0-1); EOSINOPHILS # (AUTO) 0.1 X10'3 (0-0.9); EOSINOPHILS % (AUTO) 0.9 % (0-6); HEMOGLOBIN 7.2 g/dl (12.0-16.0); LYMPHOCYTES # (AUTO) 0.7 X10'3 (1.1-4.8); LYMPHOCYTES % (AUTO) 10.5 % (21-51); MEAN CORPUSCULAR HEMOGLOBIN 30.4 PG (27.0-31.0); MEAN CORPUSCULAR HGB CONC 32.6 g/dL (33.0-36.5); MEAN CORPUSCULAR VOLUME 93.1 FL (78-98); MEAN PLATELET VOLUME 8.5 FL (7.4-10.4); MONOCYTES # (AUTO) 0.7 X10'3 (0-0.9); NEUTROPHILS # (AUTO) 5.1 X10'3 (1.8-7.7); NEUTROPHILS % (AUTO) 78.3 % (42-75); PLATELET COUNT 280 X10'3 (140-440); RED BLOOD COUNT 2.36 X10'6 (4.20-5.60); RED CELL DISTRIBUTION WIDTH 15.4 % (11.5-14.5); WHITE BLOOD COUNT 6.6 X10'3 (4.5-11.0)
[2024-06-06 03:38] LABS: HEMATOCRIT 21.9 % (35.0-45.0)
[2024-06-06 04:04] LABS: NUCLEATED RED BLOOD CELLS 1 /100WBC (0-0); TOTAL CELLS COUNTED 100
[2024-06-06 04:05] LABS: PLATELET ESTIMATE NORMAL; STOMATOCYTES 1+
[2024-06-06 04:11] LABS: ALANINE AMINOTRANSFERASE 75 U/L (12-78); ALBUMIN 3.7 G/DL (3.4-5.0); ALBUMIN/GLOBULIN RATIO 1.9 (1.1-1.5); ALKALINE PHOSPHATASE 70 IU/L (46-116); ANION GAP 9 (8-16); ASPARTATE AMINO TRANSFERASE 82 U/L (10-37); BILIRUBIN,TOTAL 1.1 MG/DL (0.1-1.0); BLOOD UREA NITROGEN 5 MG/DL (7-18); BUN/CREATININE RATIO 19.2 (10.0-20.0); CALCIUM 8.1 MG/DL (8.5-10.1); CHLORIDE 105 MMOL/L (99-107); CREATININE 0.26 MG/DL (0.40-0.90); GLUCOSE 147 MG/DL (70-104); LIPASE 295 U/L (16-77); MAGNESIUM 1.7 MG/DL (1.5-2.4); PHOSPHORUS 2.8 MG/DL (2.3-4.5); SODIUM 136 MMOL/L (135-145); TOTAL CARBON DIOXIDE 21.9 MMOL/L (24-32); TOTAL PROTEIN 5.7 G/DL (6.4-8.2); eCRCL 276 ML/MIN; eGFR > 90 ML/MIN
[2024-06-06] MEDS: magnesium sulf-water 4G/100mL 100 ML IV PRN (04:56)
[2024-06-06 05:40] LABS: ABG BASE EXCESS -4.8 mmol/L (-2.0-3.0); ABG HCO3 20.4 mmol/L (21.0-28.0); ABG OXYGEN SATURATION 93.6 % (94.0-98.0); ABG PCO2 (T) 38.2 mmHg (32.0-45.0); ABG PH (T) 7.346 (7.350-7.450); ABG PO2 (T) 71.4 mmHg (83.0-108.0); ALLEN'S TEST Modified; FCOHb 0.5 % (0.5-1.5); FHHb 6.3 % (0.0-5.0); FMetHb 0.3 % (0.0-1.5); FO2Hb 92.9 % (94.0-98.0); PEEP 7 cm H2O; RESPIRATORY RATE 15 b/min; TIDAL VOLUME 350 mL; TOTAL HEMOGLOBIN 7.9 G/dl (12.0-16.0)
[2024-06-06] MEDS: erythromycin base 250mg tablet PO SCH (09:56)
[2024-06-06] MEDS: furosemide 40mg/4ml inj IV STA (09:57)
[2024-06-06] MEDS ORDERED: metolazone 2.5mg tablet PO SCH (11:32)
[2024-06-06] MEDS ORDERED: MIDAZOLAM IN NACL,ISO-OSMOT/PF 100 ML IV PRN (11:35)
[2024-06-06] MEDS ORDERED: magnesium hydroxide 30ml (MOM) UD suspension OGT PRN (11:41)
[2024-06-06] MEDS ORDERED: mag hydrox/Alum hydrox/simeth 30ml oral suspension OGT PRN (11:41)
[2024-06-06] MEDS ORDERED: Neutra Phos packet OGT PRN (11:42)
[2024-06-06] MEDS ORDERED: POTASSIUM CHLORIDE 20 MEQ/15 ML oral solution OGT PRN (11:42)
[2024-06-06] MEDS: CISatracurium besylate 100 MG in NS 100ml IV IV PRN (12:48)
[2024-06-06 12:49] LABS: BASOPHILS % (AUTO) 0.6 % (0-1); EOSINOPHILS % (AUTO) 0.7 % (0-6); HEMOGLOBIN 7.2 g/dl (12.0-16.0); LYMPHOCYTES # (AUTO) 0.6 X10'3 (1.1-4.8); LYMPHOCYTES % (AUTO) 8.3 % (21-51); MEAN CORPUSCULAR HEMOGLOBIN 30.8 PG (27.0-31.0); MEAN CORPUSCULAR HGB CONC 32.9 g/dL (33.0-36.5); MEAN CORPUSCULAR VOLUME 93.8 FL (78-98); MEAN PLATELET VOLUME 8.5 FL (7.4-10.4); MONOCYTES # (AUTO) 0.8 X10'3 (0-0.9); MONOCYTES % (AUTO) 11.1 % (2-12); NEUTROPHILS # (AUTO) 5.8 X10'3 (1.8-7.7); NEUTROPHILS % (AUTO) 79.3 % (42-75); PLATELET COUNT 304 X10'3 (140-440); RED BLOOD COUNT 2.34 X10'6 (4.20-5.60); RED CELL DISTRIBUTION WIDTH 15.6 % (11.5-14.5); WHITE BLOOD COUNT 7.4 X10'3 (4.5-11.0)
[2024-06-06 12:58] LABS: HEMATOCRIT 21.9 % (35.0-45.0)
[2024-06-06] MEDS: midazolam 100mg in NS 100ml 100 ML IV PRN (13:22)
[2024-06-06] MEDS: furosemide 40mg/4ml inj IV SCH (15:22)
[2024-06-06] MEDS: erythromycin base 250mg tablet OGT SCH (15:22)
[2024-06-06] MEDS: fentaNYL 2,500 MCG in Normal Saline 250ml IV soln bag IV SCH (20:13)
[2024-06-06] MEDS: metolazone 2.5mg tablet OGT SCH (21:19)
[2024-06-06] MEDS: docusate sodium 100mg/10ml UD cup OGT SCH (21:20)
[2024-06-07] VITALS (42 sets, daily range): BP systolic 77–168; BP diastolic 31–120; PULSE 101–153; RESP 19–29; O2SAT 90–100
[2024-06-07 02:36] LABS: BASOPHILS % (AUTO) 0.4 % (0-1); EOSINOPHILS # (AUTO) 0.1 X10'3 (0-0.9); EOSINOPHILS % (AUTO) 0.8 % (0-6); HEMOGLOBIN 7.9 g/dl (12.0-16.0); LYMPHOCYTES # (AUTO) 0.8 X10'3 (1.1-4.8); LYMPHOCYTES % (AUTO) 9.1 % (21-51); MEAN CORPUSCULAR HEMOGLOBIN 30.6 PG (27.0-31.0); MEAN CORPUSCULAR VOLUME 92.7 FL (78-98); MEAN PLATELET VOLUME 8.1 FL (7.4-10.4); MONOCYTES # (AUTO) 1.1 X10'3 (0-0.9); MONOCYTES % (AUTO) 13.6 % (2-12); NEUTROPHILS # (AUTO) 6.3 X10'3 (1.8-7.7); NEUTROPHILS % (AUTO) 76.1 % (42-75); PLATELET COUNT 373 X10'3 (140-440); RED BLOOD COUNT 2.59 X10'6 (4.20-5.60); RED CELL DISTRIBUTION WIDTH 15.9 % (11.5-14.5); WHITE BLOOD COUNT 8.2 X10'3 (4.5-11.0)
[2024-06-07 02:46] LABS: ALANINE AMINOTRANSFERASE 65 U/L (12-78); ALBUMIN 3.6 G/DL (3.4-5.0); ALBUMIN/GLOBULIN RATIO 1.3 (1.1-1.5); ALKALINE PHOSPHATASE 76 IU/L (46-116); ANION GAP 7 (8-16); ASPARTATE AMINO TRANSFERASE 66 U/L (10-37); BLOOD UREA NITROGEN 5 MG/DL (7-18); BUN/CREATININE RATIO 15.2 (10.0-20.0); CALCIUM 8.6 MG/DL (8.5-10.1); CHLORIDE 98 MMOL/L (99-107); CREATININE 0.33 MG/DL (0.40-0.90); GLUCOSE 122 MG/DL (70-104); LIPASE 213 U/L (16-77); MAGNESIUM 1.7 MG/DL (1.5-2.4); PHOSPHORUS 4.8 MG/DL (2.3-4.5); PREALBUMIN 9.5 MG/DL (19-36); SODIUM 136 MMOL/L (135-145); TOTAL CARBON DIOXIDE 30.6 MMOL/L (24-32); TOTAL PROTEIN 6.4 G/DL (6.4-8.2); eCRCL 217 ML/MIN; eGFR > 90 ML/MIN
[2024-06-07 03:23] LABS: NUCLEATED RED BLOOD CELLS 1 /100WBC (0-0); PLATELET ESTIMATE NORMAL; STOMATOCYTES 3+; TOTAL CELLS COUNTED 100
[2024-06-07 04:19] LABS: ABG BASE EXCESS 4.3 mmol/L (-2.0-3.0); ABG OXYGEN SATURATION 99.4 % (94.0-98.0); ABG PCO2 (T) 50.5 mmHg (32.0-45.0); ABG PH (T) 7.391 (7.350-7.450); ABG PO2 (T) 156.9 mmHg (83.0-108.0); FCOHb 0.3 % (0.5-1.5); FHHb 0.6 % (0.0-5.0); FO2Hb 99.1 % (94.0-98.0); MODE VENT - AC; PATIENT TEMPERATURE 36.8; PEEP 13 cm H2O; RESPIRATORY RATE 20 b/min; TIDAL VOLUME 250 mL; TOTAL HEMOGLOBIN 9.3 G/dl (12.0-16.0)
[2024-06-07] MEDS: lactulose 20gm/30ml cup OGT SCH (14:00)
[2024-06-07] MEDS ORDERED: lactulose 20gm/30ml cup NG SCH (14:00)
[2024-06-07 14:47] LABS: ABG BASE EXCESS 6.7 mmol/L (-2.0-3.0); ABG HCO3 32.2 mmol/L (21.0-28.0); ABG OXYGEN SATURATION 97.9 % (94.0-98.0); ABG PCO2 (T) 52.7 mmHg (32.0-45.0); ABG PH (T) 7.405 (7.350-7.450); ABG PO2 (T) 101.6 mmHg (83.0-108.0); ALLEN'S TEST POSITIVE; FHHb 2.1 % (0.0-5.0); FMetHb 0.3 % (0.0-1.5); FO2Hb 96.6 % (94.0-98.0); MODE VENT - AC; PATIENT TEMPERATURE 37.2; RESPIRATORY RATE 20 b/min; TIDAL VOLUME 250 mL; TOTAL HEMOGLOBIN 8.2 G/dl (12.0-16.0)
[2024-06-07 20:06] LABS: ALBUMIN 3.4 G/DL (3.4-5.0); ANION GAP 5 (8-16); BLOOD UREA NITROGEN 13 MG/DL (7-18); BUN/CREATININE RATIO 28.9 (10.0-20.0); CALCIUM 9.3 MG/DL (8.5-10.1); CHLORIDE 98 MMOL/L (99-107); CREATININE 0.45 MG/DL (0.40-0.90); GLUCOSE 105 MG/DL (70-104); POTASSIUM 4.4 MMOL/L (3.5-5.1); SODIUM 141 MMOL/L (135-145); TOTAL CARBON DIOXIDE 38.3 MMOL/L (24-32); eCRCL 159 ML/MIN; eGFR > 90 ML/MIN
[2024-06-08] VITALS (37 sets, daily range): BP systolic 86–154; BP diastolic 33–105; PULSE 100–145; RESP 10–58; O2SAT 40–99
[2024-06-08 03:32] LABS: ABG BASE EXCESS 13.7 mmol/L (-2.0-3.0); ABG HCO3 38.2 mmol/L (21.0-28.0); ABG OXYGEN SATURATION 96.8 % (94.0-98.0); ABG PCO2 (T) 50.6 mmHg (32.0-45.0); ABG PH (T) 7.498 (7.350-7.450); ABG PO2 (T) 87.6 mmHg (83.0-108.0); ALLEN'S TEST Modified; FCOHb 0.5 % (0.5-1.5); FHHb 3.2 % (0.0-5.0); FMetHb 0.3 % (0.0-1.5); MODE prvc; PATIENT TEMPERATURE 37.4; PEEP 9 cm H2O; RESPIRATORY RATE 20 b/min; TIDAL VOLUME 250 mL; TOTAL HEMOGLOBIN 8.5 G/dl (12.0-16.0)
[2024-06-08 03:34] LABS: BASOPHILS % (AUTO) 0.4 % (0-1); EOSINOPHILS % (AUTO) 0.8 % (0-6); HEMATOCRIT 22.1 % (35.0-45.0); HEMOGLOBIN 7.3 g/dl (12.0-16.0); LYMPHOCYTES # (AUTO) 0.9 X10'3 (1.1-4.8); LYMPHOCYTES % (AUTO) 15.4 % (21-51); MEAN CORPUSCULAR HEMOGLOBIN 30.4 PG (27.0-31.0); MEAN CORPUSCULAR HGB CONC 33.1 g/dL (33.0-36.5); MEAN CORPUSCULAR VOLUME 91.7 FL (78-98); MEAN PLATELET VOLUME 8.2 FL (7.4-10.4); MONOCYTES # (AUTO) 0.9 X10'3 (0-0.9); MONOCYTES % (AUTO) 16.9 % (2-12); NEUTROPHILS # (AUTO) 3.7 X10'3 (1.8-7.7); NEUTROPHILS % (AUTO) 66.5 % (42-75); PLATELET COUNT 382 X10'3 (140-440); RED BLOOD COUNT 2.41 X10'6 (4.20-5.60); RED CELL DISTRIBUTION WIDTH 16.1 % (11.5-14.5); WHITE BLOOD COUNT 5.6 X10'3 (4.5-11.0)
[2024-06-08 03:50] LABS: ALANINE AMINOTRANSFERASE 52 U/L (12-78); ALBUMIN 3.2 G/DL (3.4-5.0); ALBUMIN/GLOBULIN RATIO 1.1 (1.1-1.5); ALKALINE PHOSPHATASE 77 IU/L (46-116); ANION GAP 1 (8-16); ASPARTATE AMINO TRANSFERASE 40 U/L (10-37); BILIRUBIN,TOTAL 0.6 MG/DL (0.1-1.0); BLOOD UREA NITROGEN 11 MG/DL (7-18); BUN/CREATININE RATIO 18.6 (10.0-20.0); CALCIUM 8.9 MG/DL (8.5-10.1); CHLORIDE 94 MMOL/L (99-107); CREATININE 0.59 MG/DL (0.40-0.90); GLUCOSE 111 MG/DL (70-104); LIPASE 221 U/L (16-77); MAGNESIUM 1.7 MG/DL (1.5-2.4); PHOSPHORUS 5.4 MG/DL (2.3-4.5); POTASSIUM 3.9 MMOL/L (3.5-5.1); SODIUM 135 MMOL/L (135-145); TOTAL CARBON DIOXIDE 39.6 MMOL/L (24-32); TOTAL PROTEIN 6.1 G/DL (6.4-8.2); eCRCL 122 ML/MIN; eGFR > 90 ML/MIN
[2024-06-08 04:10] LABS: TOTAL CELLS COUNTED 100
[2024-06-08] MEDS: risperiDONE 2mg tablet PO ONE (09:17)
[2024-06-08] MEDS ORDERED: lactulose 20gm/30ml cup OGT SCH (11:22)
[2024-06-08] MEDS: metoprolol tartrate 1mg/ml inj IV ONE (14:50)
[2024-06-08] MEDS ORDERED: docusate sodium 100mg/10ml UD cup PO SCH (16:36)
[2024-06-08] MEDS: erythromycin base 250mg tablet PO SCH (16:47)
[2024-06-08] MEDS ORDERED: magnesium hydroxide 30ml (MOM) UD suspension PO PRN (16:49)
[2024-06-08] MEDS ORDERED: Neutra Phos packet PO PRN (16:56)
[2024-06-08] MEDS ORDERED: POTASSIUM CHLORIDE 20 MEQ/15 ML oral solution PO PRN (16:57)
[2024-06-08] MEDS: POTASSIUM CHLORIDE 20 MEQ/15 ML oral solution PO SCH (17:30)
[2024-06-08] MEDS: docusate sod 100mg capsule PO SCH (20:41)
[2024-06-08] MEDS: metolazone 2.5mg tablet PO SCH (20:41)
[2024-06-08] MEDS: lactulose 20gm/30ml cup PO SCH (20:42)
[2024-06-08] MEDS: Melatonin 3mg tablet PO SCH (20:42)
[2024-06-08] MEDS: metoprolol tartrate 1mg/ml inj IV SCH (20:44)
[2024-06-09] VITALS (25 sets, daily range): BP systolic 125–148; BP diastolic 66–101; PULSE 91–139; RESP 13–28; TEMP 97.9–98; O2SAT 89–98
[2024-06-09 02:45] LABS: BASOPHILS # (AUTO) 0.1 X10'3 (0-0.2); BASOPHILS % (AUTO) 0.7 % (0-1); EOSINOPHILS # (AUTO) 0.1 X10'3 (0-0.9); EOSINOPHILS % (AUTO) 0.7 % (0-6); HEMATOCRIT 25.9 % (35.0-45.0); HEMOGLOBIN 8.7 g/dl (12.0-16.0); LYMPHOCYTES # (AUTO) 1.2 X10'3 (1.1-4.8); LYMPHOCYTES % (AUTO) 13.4 % (21-51); MEAN CORPUSCULAR HEMOGLOBIN 30.6 PG (27.0-31.0); MEAN CORPUSCULAR HGB CONC 33.8 g/dL (33.0-36.5); MEAN CORPUSCULAR VOLUME 90.6 FL (78-98); MEAN PLATELET VOLUME 7.9 FL (7.4-10.4); MONOCYTES # (AUTO) 1.5 X10'3 (0-0.9); MONOCYTES % (AUTO) 16.7 % (2-12); NEUTROPHILS # (AUTO) 6.3 X10'3 (1.8-7.7); NEUTROPHILS % (AUTO) 68.5 % (42-75); PLATELET COUNT 486 X10'3 (140-440); RED BLOOD COUNT 2.85 X10'6 (4.20-5.60); RED CELL DISTRIBUTION WIDTH 15.8 % (11.5-14.5); WHITE BLOOD COUNT 9.2 X10'3 (4.5-11.0)
[2024-06-09 02:53] LABS: ALANINE AMINOTRANSFERASE 58 U/L (12-78); ALBUMIN 4.1 G/DL (3.4-5.0); ALKALINE PHOSPHATASE 100 IU/L (46-116); ANION GAP 8 (8-16); ASPARTATE AMINO TRANSFERASE 57 U/L (10-37); BILIRUBIN,TOTAL 0.8 MG/DL (0.1-1.0); BLOOD UREA NITROGEN 10 MG/DL (7-18); BUN/CREATININE RATIO 18.5 (10.0-20.0); CALCIUM 10.6 MG/DL (8.5-10.1); CHLORIDE 87 MMOL/L (99-107); CREATININE 0.54 MG/DL (0.40-0.90); GLUCOSE 131 MG/DL (70-104); MAGNESIUM 1.9 MG/DL (1.5-2.4); PHOSPHORUS 6.7 MG/DL (2.3-4.5); SODIUM 135 MMOL/L (135-145); TOTAL PROTEIN 8.1 G/DL (6.4-8.2); eCRCL 133 ML/MIN; eGFR > 90 ML/MIN
[2024-06-09 02:56] LABS: POTASSIUM 2.8 MMOL/L (3.5-5.1)
[2024-06-09 02:57] LABS: TOTAL CARBON DIOXIDE 40.1 MMOL/L (24-32)
[2024-06-09 03:19] LABS: LIPASE > 375 U/L (16-77)
[2024-06-09] MEDS: potassium Cl 40MEQ/270ML bag 250 ML IV PRN (03:24)
[2024-06-09] MEDS: UREA 15GM/PACKET 15 GM POWD.PACK PO SCH (08:00)
[2024-06-09] MEDS: MULTIVIT-MIN/FERROUS GLUCONATE 9 MG/15 ML LIQUID PO SCH (08:55)
[2024-06-09] MEDS: thiamine 100mg tablet PO SCH (08:56)
[2024-06-09] MEDS: folic acid 1mg tablet PO SCH (08:57)
[2024-06-09] MEDS ORDERED: chlordiazePOXIDE 25mg capsule PO PRN (11:30)
[2024-06-09] MEDS: lisinopril 20mg tablet PO STA (11:35)
[2024-06-09] MEDS: chlordiazePOXIDE 25mg capsule PO ONE (11:41)
[2024-06-09] MEDS: mag hydrox/Alum hydrox/simeth 30ml oral suspension PO PRN (12:53)
[2024-06-09] MEDS: metoprolol tartrate 25mg tablet PO SCH (14:05)
[2024-06-09] MEDS: acetaZOLAMIDE IV 500mg inj IV SCH (16:55)
[2024-06-09] MEDS: metolazone 2.5mg tablet PO SCH (19:52)
[2024-06-09] MEDS: Melatonin 3mg tablet PO SCH (19:52)
[2024-06-09] MEDS ORDERED: magnesium sulf-water 2g/50mL 50 ML IV PRN (23:30)
[2024-06-09] MEDS ORDERED: potassium Cl 40MEQ/1/2NS 520ml 520 ML IV PRN (23:30)
[2024-06-09] MEDS ORDERED: magnesium Cl slow-release 64mg tablet PO PRN (23:30)
[2024-06-09] MEDS ORDERED: magnesium sulf-water 4G/100mL 100 ML IV PRN (23:30)
[2024-06-10] VITALS (14 sets, daily range): BP systolic 122–141; BP diastolic 56–102; PULSE 82–115; RESP 14–39; TEMP 96.6–98.7; O2SAT 96–100
[2024-06-10] MEDS: potassium Cl 20 mEq SR tablet PO PRN ×2 (02:46→08:10)
[2024-06-10 07:21] LABS: BASOPHILS # (AUTO) 0.1 X10'3 (0-0.2); EOSINOPHILS # (AUTO) 0.1 X10'3 (0-0.9); EOSINOPHILS % (AUTO) 0.7 % (0-6); HEMATOCRIT 29.2 % (35.0-45.0); HEMOGLOBIN 9.9 g/dl (12.0-16.0); LYMPHOCYTES # (AUTO) 1.2 X10'3 (1.1-4.8); LYMPHOCYTES % (AUTO) 16.5 % (21-51); MEAN CORPUSCULAR HEMOGLOBIN 30.8 PG (27.0-31.0); MEAN CORPUSCULAR HGB CONC 33.9 g/dL (33.0-36.5); MEAN CORPUSCULAR VOLUME 90.7 FL (78-98); MONOCYTES # (AUTO) 1.2 X10'3 (0-0.9); NEUTROPHILS # (AUTO) 4.6 X10'3 (1.8-7.7); NEUTROPHILS % (AUTO) 64.8 % (42-75); PLATELET COUNT 531 X10'3 (140-440); RED BLOOD COUNT 3.21 X10'6 (4.20-5.60); WHITE BLOOD COUNT 7.2 X10'3 (4.5-11.0)
[2024-06-10 07:31] LABS: ALANINE AMINOTRANSFERASE 58 U/L (12-78); ALBUMIN 4.3 G/DL (3.4-5.0); ALBUMIN/GLOBULIN RATIO 1.1 (1.1-1.5); ALKALINE PHOSPHATASE 94 IU/L (46-116); ANION GAP 12 (8-16); ASPARTATE AMINO TRANSFERASE 73 U/L (10-37); BILIRUBIN,TOTAL 0.7 MG/DL (0.1-1.0); BLOOD UREA NITROGEN 9 MG/DL (7-18); BUN/CREATININE RATIO 16.7 (10.0-20.0); CALCIUM 10.3 MG/DL (8.5-10.1); CHLORIDE 92 MMOL/L (99-107); CREATININE 0.54 MG/DL (0.40-0.90); GLUCOSE 119 MG/DL (70-104); MAGNESIUM 1.7 MG/DL (1.5-2.4); PHOSPHORUS 4.4 MG/DL (2.3-4.5); SODIUM 131 MMOL/L (135-145); TOTAL PROTEIN 8.3 G/DL (6.4-8.2); eCRCL 133 ML/MIN; eGFR > 90 ML/MIN
[2024-06-10 07:33] LABS: POTASSIUM 2.9 MMOL/L (3.5-5.1)
[2024-06-10] MEDS: K and/or MAG REPLACEMENT MC SCH (08:00)
[2024-06-10] MEDS: lisinopril 20mg tablet PO SCH (08:09)
[2024-06-10 09:42] LABS: ANISOCYTOSIS 1+; PLATELET ESTIMATE INCREASED; TOTAL CELLS COUNTED 100
[2024-06-10 09:44] LABS: HYPOCHROMASIA 1+; POLYCHROMASIA 2+
[2024-06-10 09:47] LABS: STOMATOCYTES 1+
[2024-06-10 14:53] LABS: PRO BRAIN NATRIURETIC PEPTIDE 4074 PG/ML (0-125)
[2024-06-10] MEDS: potassium Cl 20 mEq SR tablet PO SCH (20:24)
[2024-06-11] VITALS (10 sets, daily range): BP systolic 104–136; BP diastolic 58–88; PULSE 1–179; RESP 15–20; TEMP 96.8–98.1; O2SAT 95–100
[2024-06-11 06:24] LABS: BASOPHILS # (AUTO) 0.1 X10'3 (0-0.2); BASOPHILS % (AUTO) 1.1 % (0-1); EOSINOPHILS # (AUTO) 0.1 X10'3 (0-0.9); EOSINOPHILS % (AUTO) 1.2 % (0-6); HEMATOCRIT 32.3 % (35.0-45.0); HEMOGLOBIN 10.7 g/dl (12.0-16.0); LYMPHOCYTES # (AUTO) 1.4 X10'3 (1.1-4.8); LYMPHOCYTES % (AUTO) 14.4 % (21-51); MEAN CORPUSCULAR HEMOGLOBIN 30.2 PG (27.0-31.0); MEAN CORPUSCULAR HGB CONC 33.3 g/dL (33.0-36.5); MEAN CORPUSCULAR VOLUME 90.8 FL (78-98); MEAN PLATELET VOLUME 8.1 FL (7.4-10.4); MONOCYTES # (AUTO) 1.7 X10'3 (0-0.9); MONOCYTES % (AUTO) 17.3 % (2-12); NEUTROPHILS # (AUTO) 6.4 X10'3 (1.8-7.7); PLATELET COUNT 598 X10'3 (140-440); RED BLOOD COUNT 3.55 X10'6 (4.20-5.60); RED CELL DISTRIBUTION WIDTH 15.7 % (11.5-14.5); WHITE BLOOD COUNT 9.6 X10'3 (4.5-11.0)
[2024-06-11 06:40] LABS: ALANINE AMINOTRANSFERASE 91 U/L (12-78); ALBUMIN 4.4 G/DL (3.4-5.0); ALBUMIN/GLOBULIN RATIO 1.1 (1.1-1.5); ALKALINE PHOSPHATASE 94 IU/L (46-116); ANION GAP 14 (8-16); ASPARTATE AMINO TRANSFERASE 114 U/L (10-37); BILIRUBIN,TOTAL 0.7 MG/DL (0.1-1.0); BLOOD UREA NITROGEN 15 MG/DL (7-18); BUN/CREATININE RATIO 23.4 (10.0-20.0); CHLORIDE 97 MMOL/L (99-107); CREATININE 0.64 MG/DL (0.40-0.90); GLUCOSE 114 MG/DL (70-104); MAGNESIUM 1.7 MG/DL (1.5-2.4); PHOSPHORUS 4.4 MG/DL (2.3-4.5); POTASSIUM 3.4 MMOL/L (3.5-5.1); PREALBUMIN 25.1 MG/DL (19-36); SODIUM 131 MMOL/L (135-145); TOTAL CARBON DIOXIDE 19.8 MMOL/L (24-32); TOTAL PROTEIN 8.5 G/DL (6.4-8.2); eCRCL 112 ML/MIN; eGFR > 90 ML/MIN
[2024-06-11 07:43] LABS: PLATELET ESTIMATE INCREASED; TOTAL CELLS COUNTED 100
[2024-06-11 07:44] LABS: ELLIPTOCYTES FEW; HYPOCHROMASIA 1+; STOMATOCYTES 1+; TEAR DROP CELLS FEW
[2024-06-11 07:45] LABS: POLYCHROMASIA FEW
[2024-06-11] MEDS ORDERED: ipratropium/albuterol 3ml nebule NEB PRN (13:15)
[2024-06-11] MEDS: ondansetron/PF 4mg/2ml inj IV PRN (15:04)
[2024-06-11] MEDS: LORazepam 2 mg/ml vial IV PRN ×2 (15:04→23:00)
[2024-06-12 02:00] VITALS: BP 104/61; PULSE 107; RESP 34; TEMP 97.3; O2SAT 96
[2024-06-12 03:46] VITALS: PULSE 107; RESP 24; O2SAT 96
[2024-06-12] MEDS: LORazepam 2 mg/ml vial IV PRN (04:13)
[2024-06-12 05:41] VITALS: O2SAT 98
[2024-06-12 07:00] VITALS: BP 132/79; PULSE 94; RESP 32; TEMP 98.4; O2SAT 100
[2024-06-12 07:01] LABS: BASOPHILS # (AUTO) 0.1 X10'3 (0-0.2); BASOPHILS % (AUTO) 0.9 % (0-1); EOSINOPHILS # (AUTO) 0.1 X10'3 (0-0.9); EOSINOPHILS % (AUTO) 1.4 % (0-6); HEMATOCRIT 32.8 % (35.0-45.0); HEMOGLOBIN 10.7 g/dl (12.0-16.0); LYMPHOCYTES # (AUTO) 1.5 X10'3 (1.1-4.8); LYMPHOCYTES % (AUTO) 15.8 % (21-51); MEAN CORPUSCULAR HEMOGLOBIN 29.9 PG (27.0-31.0); MEAN CORPUSCULAR HGB CONC 32.5 g/dL (33.0-36.5); MEAN PLATELET VOLUME 7.9 FL (7.4-10.4); MONOCYTES # (AUTO) 1.5 X10'3 (0-0.9); MONOCYTES % (AUTO) 15.8 % (2-12); NEUTROPHILS # (AUTO) 6.4 X10'3 (1.8-7.7); NEUTROPHILS % (AUTO) 66.1 % (42-75); PLATELET COUNT 637 X10'3 (140-440); RED BLOOD COUNT 3.57 X10'6 (4.20-5.60); RED CELL DISTRIBUTION WIDTH 16.6 % (11.5-14.5); WHITE BLOOD COUNT 9.7 X10'3 (4.5-11.0)
[2024-06-12 07:31] LABS: ALANINE AMINOTRANSFERASE 93 U/L (12-78); ALBUMIN 4.4 G/DL (3.4-5.0); ALBUMIN/GLOBULIN RATIO 1.2 (1.1-1.5); ALKALINE PHOSPHATASE 84 IU/L (46-116); ANION GAP 16 (8-16); ASPARTATE AMINO TRANSFERASE 92 U/L (10-37); BILIRUBIN,TOTAL 0.7 MG/DL (0.1-1.0); BLOOD UREA NITROGEN 29 MG/DL (7-18); BUN/CREATININE RATIO 31.5 (10.0-20.0); CALCIUM 9.8 MG/DL (8.5-10.1); CHLORIDE 99 MMOL/L (99-107); CREATININE 0.92 MG/DL (0.40-0.90); GLUCOSE 103 MG/DL (70-104); MAGNESIUM 1.9 MG/DL (1.5-2.4); PHOSPHORUS 4.5 MG/DL (2.3-4.5); POTASSIUM 4.1 MMOL/L (3.5-5.1); SODIUM 132 MMOL/L (135-145); TOTAL CARBON DIOXIDE 16.6 MMOL/L (24-32); TOTAL PROTEIN 8.2 G/DL (6.4-8.2); eCRCL 78 ML/MIN; eGFR 75 ML/MIN
[2024-06-12 08:06] LABS: TOTAL CELLS COUNTED 100
[2024-06-12 08:07] LABS: PLATELET ESTIMATE INCREASED
[2024-06-12 08:13] LABS: ANISOCYTOSIS 2+; HYPOCHROMASIA 1+
[2024-06-12 08:14] LABS: POLYCHROMASIA FEW
[2024-06-12 08:15] LABS: LARGE PLATELETS FEW
[2024-06-12 08:47] VITALS: BP_SYST 132; PULSE 94
[2024-06-12] MEDS ORDERED: LEVE500T12 PO (10:54)
[2024-06-12] MEDS ORDERED: LISI20TA28 PO (10:54)
[2024-06-12] MEDS ORDERED: PANT40TA54 PO (10:54)
[2024-06-12] MEDS ORDERED: METO50TA17 PO (10:54)
[2024-06-12] MEDS ORDERED: NICO-631 TD (10:54)
[2024-06-12] MEDS ORDERED: FOLI1TAB27 PO (10:57)
[2024-06-12] MEDS ORDERED: thiamine tablet PO (10:57)
[2024-06-12] MEDS ORDERED: MULT9LIQ7 PO (10:57)
[2024-06-12] MEDS ORDERED: MELA3TAB39 PO (10:57)
[2024-06-12] MEDS ORDERED: MAGN500C4 PO (10:57)
[2024-06-12] MEDS ORDERED: THIA100T66 PO (10:59)
[2024-06-12] MEDS ORDERED: FURO20TA4 PO (14:30)
== END 2024-06-12 11:30 | disposition home or self-care (01) | DRG 720 ==
LOC: ER 07:54 → ED HOLD 11:59 → PCU 3S 18:40 → CICU 2S 06-02 01:00 → PCU 3S 06-09 17:41
PROVIDERS: ADMIT Internal Medicine; ATTEND Internal Medicine
PROC: 5A1955Z Respiratory Ventilation, Greater than 96 Consecutive Hours (ICD-10-PCS; 2024-06-02)
PROC: 0BH17EZ Insertion of Endotracheal Airway into Trachea, Via Natural or Artificial Opening (ICD-10-PCS; 2024-06-02)
PROC: 5A12012 Performance of Cardiac Output, Single, Manual (ICD-10-PCS; 2024-06-03)
PROC: 02HV33Z Insertion of Infusion Device into Superior Vena Cava, Percutaneous Approach (ICD-10-PCS; principal; 2024-06-04)
PROC: B548ZZA Ultrasonography of Superior Vena Cava, Guidance (ICD-10-PCS; 2024-06-04)
DX: A41.9 Sepsis, unspecified organism (principal); J80 Acute respiratory distress syndrome; I46.9 Cardiac arrest, cause unspecified; G93.40 Encephalopathy, unspecified; K85.20 Alcohol induced acute pancreatitis without necrosis or infection; E46 Unspecified protein-calorie malnutrition; I47.0 Re-entry ventricular arrhythmia; J18.9 Pneumonia, unspecified organism; E87.29 Other acidosis; I11.0 Hypertensive heart disease with heart failure; I42.8 Other cardiomyopathies; I50.22 Chronic systolic (congestive) heart failure; D63.8 Anemia in other chronic diseases classified elsewhere; R56.9 Unspecified convulsions; E87.1 Hypo-osmolality and hyponatremia; R65.20 Severe sepsis without septic shock; E88.09 Other disorders of plasma-protein metabolism, not elsewhere classified; F10.230 Alcohol dependence with withdrawal, uncomplicated; R74.01 Elevation of levels of liver transaminase levels; E87.6 Hypokalemia; F17.210 Nicotine dependence, cigarettes, uncomplicated; Z68.21 Body mass index [BMI] 21.0-21.9, adult; Z88.5 Allergy status to narcotic agent
CPT/HCPCS: 36415; 36600; 70450; 71045; 71260; 73080; 74177; 80048; 80053; 80061; 80202; 80305; 80320; 81001; 81025; 82140; 82150; 82550; 82570; 82803; 82948; 83605; 83690; 83735; 83880; 83930; 83935; 84100; 84132; 84134; 84145; 84300; 84443; 84484; 84703; 85007; 85018; 85025; 85610; 85730; 86703; 86803; 87040; 87070; 87081; 87088; 87340; 87502; 87503; 87522; 92950; 93005; 93306; 94002; 94003; 94640; 94760; 94799; 96374; 96375; 97116; 97161; 97530; 99285; A4615; A5200; A6212; A6213; A6250; A6258; A6449; A7015; C1751; G0378; J0456; J0692; J0696; J1120; J1630; J1885; J1940; J1953; J2060; J2405; J2470; J2560; J2704; J3010; J3370; J3372; J3411; J3475; J3480; J3490; J7030; J7040; J7042; J7050; J7060; J7070; J7120; J7121; P9045; P9047; Q9967

== ENCOUNTER 2024-06-19 11:13 | Emergency (ER) | payer MEDICAID ==
[~2024-06-19] VITALS: Ht 157.5 cm; Wt 45.2 kg
[~2024-06-19 11:13] MED LIST changes: -BUSP10TA4 PO; -CHLO25CA10 PO; +FOLI1TAB27 PO; +FURO20TA4 PO; -GABA-530; -HYDR50TA65 PO; +LEVE500T12 PO; +LISI20TA28 PO; +MAGN500C4 PO; +MELA3TAB39 PO; +METO50TA17 PO; +MULT9LIQ7 PO; -NALT50TA5 PO; +NICO-631 TD; -ONDA-243 PO; +PANT40TA54 PO; +THIA100T66 PO
[2024-06-19 12:12] LABS: BASOPHILS # (AUTO) 0.1 X10'3 (0-0.2); BASOPHILS % (AUTO) 1.3 % (0-1); EOSINOPHILS # (AUTO) 0.1 X10'3 (0-0.9); EOSINOPHILS % (AUTO) 1.2 % (0-6); HEMATOCRIT 35.5 % (35.0-45.0); HEMOGLOBIN 11.5 g/dl (12.0-16.0); LYMPHOCYTES # (AUTO) 1.5 X10'3 (1.1-4.8); LYMPHOCYTES % (AUTO) 25.1 % (21-51); MEAN CORPUSCULAR HEMOGLOBIN 29.6 PG (27.0-31.0); MEAN CORPUSCULAR HGB CONC 32.3 g/dL (33.0-36.5); MEAN CORPUSCULAR VOLUME 91.8 FL (78-98); MEAN PLATELET VOLUME 7.2 FL (7.4-10.4); MONOCYTES # (AUTO) 0.6 X10'3 (0-0.9); NEUTROPHILS # (AUTO) 3.9 X10'3 (1.8-7.7); NEUTROPHILS % (AUTO) 63.4 % (42-75); PLATELET COUNT 837 X10'3 (140-440); RED BLOOD COUNT 3.87 X10'6 (4.20-5.60); RED CELL DISTRIBUTION WIDTH 16.2 % (11.5-14.5); WHITE BLOOD COUNT 6.2 X10'3 (4.5-11.0)
[2024-06-19 12:27] LABS: ALANINE AMINOTRANSFERASE 32 U/L (12-78); ALBUMIN 4.8 G/DL (3.4-5.0); ALBUMIN/GLOBULIN RATIO 1.2 (1.1-1.5); ALKALINE PHOSPHATASE 75 IU/L (46-116); ANION GAP 12 (8-16); ASPARTATE AMINO TRANSFERASE 25 U/L (10-37); BILIRUBIN,TOTAL 0.5 MG/DL (0.1-1.0); BLOOD UREA NITROGEN 52 MG/DL (7-18); BUN/CREATININE RATIO 43.3 (10.0-20.0); CHLORIDE 102 MMOL/L (99-107); GLUCOSE 118 MG/DL (70-104); POTASSIUM 5.5 MMOL/L (3.5-5.1); SODIUM 134 MMOL/L (135-145); TOTAL CARBON DIOXIDE 19.7 MMOL/L (24-32); TOTAL PROTEIN 8.8 G/DL (6.4-8.2); eCRCL 52 ML/MIN; eGFR 55 ML/MIN
[2024-06-19 12:33] LABS: PRO BRAIN NATRIURETIC PEPTIDE 1070 PG/ML (0-125)
[2024-06-19 12:53] VITALS: BP 117/64; PULSE 102; RESP 16; TEMP 97.8; O2SAT 99
[2024-06-19 16:17] LABS: MAGNESIUM 1.8 MG/DL (1.5-2.4)
[2024-06-19 16:24] LABS: ETHANOL < 10 MG/DL (<10)
== END 2024-06-19 19:13 | disposition left against medical advice (07) ==
LOC: ER 11:13
DX: R07.89 Other chest pain (principal); R00.2 Palpitations; I10 Essential (primary) hypertension; F12.90 Cannabis use, unspecified, uncomplicated; Z88.5 Allergy status to narcotic agent; Z79.899 Other long term (current) drug therapy
CPT/HCPCS: 36415; 71045; 80053; 80320; 83735; 83880; 84484; 85025; 93005; 99285

== ENCOUNTER 2025-04-11 08:28 | Outpatient (CLI) | payer MEDICAID | END 2025-04-11 23:59 | disposition home or self-care (01) | LOC: RAD 08:28 | PROVIDERS: ATTEND Nurse Practitioner Family | DX: R56.9 Unspecified convulsions (principal); F10.932 Alcohol use, unspecified with withdrawal with perceptual disturbance; H54.7 Unspecified visual loss; Z3A.16 16 weeks gestation of pregnancy | CPT/HCPCS: 95816 ==